=== PATIENT | female | born 1990 | race Caucasian/White ===

== ENCOUNTER 2020-12-20 16:08 | Outpatient (REF) | payer BC, SELFPAY ==
[2020-12-22 12:41] LABS: COVID-19 RT-PCR UVMMC Result Negative (Negative)
== END 2020-12-20 16:09 | disposition home or self-care (01) ==
LOC: LBN 16:08
PROVIDERS: Visit Provider Nurse Practitioner Family
DX: Z20.822 Contact with and (suspected) exposure to COVID-19 (principal); J06.9 Acute upper respiratory infection, unspecified
CPT/HCPCS: U0003

== ENCOUNTER 2022-04-04 03:21 | Outpatient (CLI) | payer BC, SELFPAY ==
[2022-04-04 15:36] LABS: Kit/Specimen SENT
[2022-04-04 15:43] LABS: Abs Immature Grans 0.03 10^3/uL (0.0-0.06); Absolute Basophil Count 0.05 10^3/uL (0.0-0.2); Absolute Eosinophil Count 0.34 10^3/uL (0.0-0.7); Absolute Lymphocyte Count 2.29 10^3/uL (1.2-3.4); Absolute Monocyte Count 0.73 10^3/uL (0.1-0.8); Basophils % 0.5; Eosinophils % 3.3; HGB 12.6 g/dL (11.2-15.7); Immature Grans % 0.3; Lymphocytes % 22.4; MCH 30.4 pg (27.0-33.0); MCV 87 fL (80-95); MPV 9.4 fL (8.0-11.0); Monocytes % 7.1; Neutrophils % 66.4; Platelet Count 293 10^3/uL (130-400); RBC 4.14 10^6/uL (3.93-5.22); RDW 11.8 % (11.7-14.6); RDW-SD 37.6 fL; WBC 10.24 10^3/uL (4.4-10.8)
[2022-04-04 16:18] LABS: TSH (W/Ref FT4) 2.64 uIU/mL (0.36-3.74)
[2022-04-05 08:25] LABS: Hepatitis B Surface Ag Negative (Negative)
[2022-04-05 09:24] LABS: Hepatitis C Ab w Rflx HCV PCR Negative (Negative)
[2022-04-05 09:27] LABS: Varicella IgG Antibody Positive (See Note)
[2022-04-05 09:38] LABS: Rubella IgG Ab (UVM) Positive (See Note)
[2022-04-05 09:45] LABS: HIV-1/2 Ag & Ab Screen Negative (Negative)
[2022-04-06 16:42] LABS: Syphilis IgG w/Reflex Nonreactive (Nonreactive)
[2022-04-07 01:48] LABS: Specimen WB Whole Blood
[2022-04-27 01:42] LABS: Result Summary NEGATIVE; Specimen WB Whole Blood
== END 2022-04-04 03:22 | disposition home or self-care (01) ==
LOC: LBO 03:21
PROVIDERS: PCP Family Medicine; Visit Provider Advanced Practice Midwife
DX: Z34.91 Encounter for supervision of normal pregnancy, unspecified, first trimester (principal); Z3A.11 11 weeks gestation of pregnancy; Z36.89 Encounter for other specified antenatal screening
CPT/HCPCS: 36415; 81220; 81222; 81329; 86787; 86803; 86850; 86900; 86901; 87340; 87389; 84443; 85025; 86762; 86780

== ENCOUNTER 2022-04-04 17:49 | Outpatient (REF) | payer BC, SELFPAY ==
[2022-04-04 19:00] LABS: *AMPHETAMINES SCREEN URINE Negative (Negative); *BARBITURATES SCREEN URINE Negative (Negative); *BENZODIAZEPINES SCREEN URINE Negative (Negative); Cannabinoids THC Negative (Negative); Cocaine Screen,Urine Negative (Negative); METHADONE URINE SCREEN Negative (Negative); OPIATES URINE SCREEN Negative (Negative)
[2022-04-04 19:01] LABS: Tricyclic Antidepressants Negative (Negative)
[2022-04-06 16:03] LABS: Chlamydia Result Negative (Negative); GC Result Negative (Negative)
[2022-04-10 16:03] LABS: Buprenorphine Negative ng/mL (Cutoff: 5.0); Norbuprenorphine Negative ng/mL (Cutoff: 2.5)
== END 2022-04-04 17:50 | disposition home or self-care (01) ==
LOC: LBN 17:49
PROVIDERS: PCP Family Medicine; Visit Provider Advanced Practice Midwife
DX: Z34.91 Encounter for supervision of normal pregnancy, unspecified, first trimester
CPT/HCPCS: 80307; 80348; 87491; 87591; 87086

== ENCOUNTER 2022-05-30 02:09 | Outpatient (CLI) | payer BC, SELFPAY ==
[2022-05-30 16:41] LABS: TSH (W/Ref FT4) 2.85 uIU/mL (0.36-3.74)
[2022-06-01 13:21] LABS: AFP 49.6 ng/mL; Calculated age at EDD 30 years; Cigarette smoking status non-Smoker; GA used in risk estimate Scan estimate; IVF Pregnancy No; Initial or repeat testing Initial testing; Insulin dependent diabetes No; Maternal Weight 193 lbs; Number of Fetuses 1; Physician Phone Number 802-748-7300; Prev Pregnancy w/NTD No; RECOMMENDED FOLLOW UP None.; Results Summary Normal risk
== END 2022-05-30 02:10 | disposition home or self-care (01) ==
LOC: LBO 02:09
PROVIDERS: PCP Family Medicine; Visit Provider Advanced Practice Midwife
DX: O26.892 Other specified pregnancy related conditions, second trimester (principal); R63.5 Abnormal weight gain; Z3A.19 19 weeks gestation of pregnancy
CPT/HCPCS: 36415; 82105; 84443

== ENCOUNTER 2022-08-01 02:44 | Outpatient (CLI) | payer BC, SELFPAY ==
[2022-08-01 16:19] LABS: HCT 35.2 % (36.0-46.0); HGB 11.6 g/dL (11.2-15.7); MCH 29.1 pg (27.0-33.0); MCV 88 fL (80-95); MPV 9.2 fL (8.0-11.0); Platelet Count 287 10^3/uL (130-400); RBC 3.98 10^6/uL (3.93-5.22); RDW 12.3 % (11.7-14.6); RDW-SD 40.2 fL; WBC 14.65 10^3/uL (4.4-10.8)
[2022-08-01 16:29] LABS: Glucose,1 Hr (Glucola) 116 mg/dL (80-140)
== END 2022-08-01 02:45 | disposition home or self-care (01) ==
LOC: LBO 02:44
PROVIDERS: Advanced Practice Midwife; PCP Family Medicine; Visit Provider Advanced Practice Midwife
DX: Z34.93 Encounter for supervision of normal pregnancy, unspecified, third trimester (principal); Z3A.28 28 weeks gestation of pregnancy
CPT/HCPCS: 36415; 82950; 85027

== ENCOUNTER 2022-08-24 00:38 | Outpatient (CLI) | payer BC, SELFPAY ==
--- NOTE | 2022-08-24 07:30 | DI.US_ITS ---
Exam(s) US OB CLAUDIO WEIGHT EXAM: US OB CLAUDIO WEIGHT CLINICAL HISTORY: covid in ,U07.1,O98.512. TECHNIQUE: Transabdominal obstetrical ultrasound performed. COMPARISON: US US OB 2-3 TRIMESTER from 05/30/2022 FINDINGS: Number of fetuses: 1 position: Cephalic Placental location: There is a grade 2 anterior placenta. No evidence of previa. BIOMETRIC DATA: BPD: 8.58cm, 34weeks 4days HC: 32.93cm, 37weeks 3days AC: 30.44cm, 34weeks 3days FL: 6.57cm, 33weeks 6days EFW: 2,463.43g, 5lb 7.55oz, 97% Composite Age: 35weeks 1day TORSTEN: 09/27/2022 Heart Rate: 112bpm Amniotic fluid index: 10.13cm. Visually, amount of fluid is within normal limits. IMPRESSION: 1. Single live intrauterine gestation as above. 2. Estimated weight is 2463gms. This is the 97th percentile. 3. Amniotic fluid index is 10.1 cm. Visually within normal limits. DATA REPOSITORY:
== END 2022-08-24 00:58 ==
LOC: DI 00:38
PROVIDERS: PCP Family Medicine; Visit Provider Advanced Practice Midwife
DX: O98.513 Other viral diseases complicating pregnancy, third trimester (principal); U07.1 COVID-19; Z3A.35 35 weeks gestation of pregnancy
CPT/HCPCS: 76816

== ENCOUNTER 2022-08-24 15:48 | Outpatient (CLI) | payer BC, SELFPAY ==
[2022-08-24 15:58] VITALS: BP 125/70; PULSE 64; TEMP 36.8
[2022-08-24 16:18] VITALS: BP 125/70; PULSE 64
--- NOTE | 2022-08-24 17:10 | W.OBNST ---
Date of service: 08/24/22 Time of Service: 17:10 NST Evaluation Reason for NST Reasons for Nonstress Test: OTHER, SEE COMMENT Gestational Age Gestational Age in Weeks and Days: 32 Weeks and 0Days Test and Monitor Explained Test/Monitor Explained: Test Explained and Monitor Explained Vital Signs Blood Pressure: 125/70 Pulse: 64 Temperature: 98.2 F Urine Results Urine Protein: Negative Urine Ketones: Positive Urine Glucose: Negative Urine Blood: Negative NST Information Date on Monitor: 08/24/22 Time on Monitor: 15:56 Date off Monitor: 08/24/22 Time off Monitor: 16:24 Total Time on Monitor: 28 NST Interventions: PO Hydration NST Evaluation Patient States Movement: Present FHR Baseline: 125 Variability: Moderate 6-25 bpm Accelerations: 15x15 Decelerations: None NST Results: Reactive Note N/A NST Note NST Reviewed and Verified by: Yolis Iglesias
[2022-08-24 17:12] VITALS: BP 125/70; PULSE 64; TEMP 36.8
[2022-08-25 13:18] VITALS: BP 118/70; PULSE 93
== END 2022-08-24 16:30 | disposition home or self-care (01) ==
LOC: BCD 15:48 → OBS 15:49
PROVIDERS: PCP Family Medicine; Visit Provider Advanced Practice Midwife
DX: O36.8330 Maternal care for abnormalities of the fetal heart rate or rhythm, third trimester, not applicable or unspecified (principal); Z3A.32 32 weeks gestation of pregnancy
CPT/HCPCS: 59025

== ENCOUNTER 2022-09-24 16:11 | Outpatient (REF) | payer BC, SELFPAY | END 2022-09-24 16:12 | disposition home or self-care (01) | LOC: LBN 16:11 | PROVIDERS: PCP Family Medicine; Visit Provider Advanced Practice Midwife | DX: Z34.93 Encounter for supervision of normal pregnancy, unspecified, third trimester (principal); Z36.85 Encounter for antenatal screening for Streptococcus B; Z3A.36 36 weeks gestation of pregnancy | CPT/HCPCS: 87077; 87186; 87081 ==

== ENCOUNTER 2022-10-19 18:45 | Inpatient (IN) | payer BC, SELFPAY ==
[2022-10-19] VITALS (9 sets, daily range): BP systolic 138–176; BP diastolic 72–90; PULSE 61–72; RESP 16–20; TEMP 36.8–36.9; O2SAT 98
--- NOTE | 2022-10-19 18:00 | W.OBNST ---
Date of service: 10/19/22 Time of Service: 18:00 NST Evaluation Reason for NST Reasons for Nonstress Test: OTHER, SEE COMMENT Reason for NST Other: Rule out labor Gestational Age Gestational Age in Weeks and Days: 40 Weeks and 0Days Test and Monitor Explained Test/Monitor Explained: Test Explained, Monitor Explained and Patient Verbalized Understanding Vital Signs Blood Pressure: 140/72 Pulse: 61 Temperature: 98.4 F NST Information Date on Monitor: 10/19/22 Time on Monitor: 16:30 Date off Monitor: 10/19/22 Time off Monitor: 17:30 Total Time on Monitor: 60 NST Interventions: PO Hydration Contraction Frequency: irregular q 2-6 minutes NST Evaluation Patient States Movement: Present FHR Baseline: 125 Variability: Moderate 6-25 bpm Accelerations: 15x15 Decelerations: None NST Results: Reactive Note Ultrasound Done: N/A. NST Note Note: Elevated BP noted, pt denies PAULINO, scotomata or URQ pain, Labs ordered, MD notified of r/o gHTN vs pre-e status Will recheck cvx in 2-3 hrs, await lab results, BP recheck NST Reviewed and Verified by: Yolis Iglesias
[2022-10-19 18:07] LABS: HCT 39.8 % (36.0-46.0); HGB 13.1 g/dL (11.2-15.7); MCH 28.4 pg (27.0-33.0); MCHC 32.9 % (32.0-36.0); MCV 86 fL (80-95); MPV 10.1 fL (8.0-11.0); Platelet Count 281 10^3/uL (130-400); RBC 4.62 10^6/uL (3.93-5.22); RDW 13.2 % (11.7-14.6); RDW-SD 41.3 fL
[2022-10-19 18:16] LABS: ALT 16 U/L (14-59); AST 20 U/L (15-37); Albumin 3.1 g/dL (3.4-5.0); Alkaline Phosphatase 156 U/L (46-116); Anion Gap 9.5 mmol/L (3-11); BUN 10 mg/dL (7-18); Bilirubin, Total 0.3 mg/dL (0.2-1.0); CO2 25.5 mmol/L (21.0-32.0); CREATININE 0.6 mg/dL (0.55-1.02); Calcium 9.8 mg/dL (8.5-10.1); Chloride 100 mmol/L (98-107); Estimated GFR 123.76 (mL/min/1.73m2); Glucose 85 mg/dL (74-106); LDH 139 U/L (81-234); Potassium 3.9 mmol/L (3.5-5.1); Sodium 135 mmol/L (136-145); Total Protein 7.6 g/dL (6.4-8.2)
--- NOTE | 2022-10-19 18:48 | HPE_ITS ---
Date of service: 10/19/22 Time of Service: 18:48 Assessment and Plan Assessment and plan (1) Uterine contractions: Status: Acute Assessment and plan: A: 31 yo G1 @ 40 wks, spontaneous onset labor Category 1 tracing Elevated BP initially upon arrival, stabilized at this time Serum pre-eclampsia labs are neg with urine prot/creat ratio 0.35 GBS positive, PCN allergic, Low risk for SD, moderate risk for PPH P: Admit to IV access for Clindamycin prophylaxis protocol Expectant management Anticipate , Dr. Melo available for consult OB-HPI Labor/Delivery History of Present Illness Reason for Visit: NST Chief Complaint: Uterine Contractions. TORSTEN Calculator Estimated Delivery Date Method Current WG Current Estimate 10/19/22 Ultrasound #1 40w 0d Other Estimates 10/08/22 LMP (Uncertain) 41w 4d Comments: Contractions more regular today since 1000, mostly labor pain is in her back, no ROM, no bleeding. History of Present Expected Delivery Route/Plan - CNM FOB/ - Faisal Garrido (his first child) GBS positive /Clindamycin susceptible / interested in taking placenta home, considering encapsualtation Specific Issues/Plan 1. Family hx CF Carriers: brother & maternal cousin, pt is SMA/CF neg (routine testing only). 1a. [place] is waiting to hear from her family about mutations as of 05/01/22 1b. cfDNA screen low risk x5, gender not requested. AFP neg for NTD. 2. TSH drawn d/t large weight gain in past year=2.64. Repeat TSH at 19 wks=nml @ 2.85 3. COVID + on 06/11/22 Paxlovid RX sent. K[facility]- Did not take paxlovid.- vaccinated 3a. 32 wk growth 08/24: EFW in 97th percentile, CLAUDIO 10.1, anterior placenta, cephalic presentation 4. Tdap done Assessment: History Reviewed & Current Review of Systems Narrative: ROS completed, non contributory other then HPI PFSH All Active Problems (Updated 10/19/22 @ 18:56 by Yolis Iglesias) Uterine contractions (Acute) Elevated BP without diagnosis of hypertension (Acute) Weight gain, abnormal (Acute) weight 159 11/28 at [facility] H/O wrist surgery (Acute) (Acute) Medical History (Updated 10/19/22 @ 18:56 by Yolis Iglesias) COVID-19 affecting in second trimester + 06/11/22 Family history of cystic fibrosis Left wrist fracture Tachycardia URI (upper respiratory infection) Family History Mother Cancer ANAL CANCER Maternal Grandmother No problems noted. Maternal Grandfather No problems noted. Father Alcohol use disorder Paternal Grandmother No problems noted. Paternal Grandfather Alcohol use disorder Brother Cystic fibrosis carrier Brother No problems noted. Sister No problems noted. Maternal Aunt Diabetes Maternal Aunt Diabetes Maternal Cousin Cystic fibrosis Social History Smoking/Tobacco Use Status: Never Smoking risk assessment performed?: Yes Drug use: Never Household members: significant other Sexually active: Yes Do you think of yourself as: straight/heterosexual Current gender identity: female Female Reproductive History Menstrual control method: none History History 1 Para 0 Hx # Term Pregnancies Multiple births Hx # Pregnancies Ectopic pregnancies AB induced Hx Number of Living Children AB spontaneous Meds Allergies and Home Medications Allergies Allergy/AdvReac Type Severity Reaction Status Date / Time amoxicillin Allergy Hives Verified 10/19/22 16:10 Home Medications Medication Instructions Recorded Confirmed Type Saccharomyces boulardii 250 mg 5,000 mmu cells PO DAILY 03/07/22 10/19/22 History capsule (Daily Probiotic (S. boulardii)) cholecalciferol (vitamin D3) 25 25 mcg PO DAILY 03/07/22 10/19/22 History mcg (1,000 unit) capsule prenat.vits,re,oyy-yvgc-ftuss 1 tab PO DAILY 03/07/22 10/19/22 History albuterol sulfate 90 mcg/actuation 2 puff inhalation QID #8.5 grams 07/25/22 10/19/22 Rx aerosol inhaler (Proventil HFA) ascorbate calcium (vitamin C) 500 500 mg PO DAILY 08/06/22 10/19/22 History mg tablet Exam Physical Exam Vital signs: Pulse BP 61 176/87 H 10/19/22 17:23 10/19/22 17:23 Vital Signs Reviewed: Yes Narrative: BP retaken manually is 138/88, pt denies PAULINO, scotomata or RUQ pain HTN labs were drawn on admission and results are WNL with urine prot/creat ratio pending Constitutional Constitutional: mild distress, average body habitus and cooperative Detailed Labor and Delivery Exam Dilation: 5.5 Effacement (%): 90 station: -2 Cervix position: anterior Consistency: soft FELIX Score(Cervical Ripeness Score): 11 Amniotic Membrane Status: Intact Contraction Frequency(min): irregular q2-5 Contraction Intensity: Moderate Fetus A Heart Rate Baseline: 125 Monitor Accelerations: 15 X 15 Monitor Decelerations: None Variability: Moderate (6-25 BPM) Categories: Category I Est. Weight: 8 lb 6.041 oz Est. Weight: 3800 gms HEENT Exam HEENT Exam: Normal Neck Exam Neck Exam: Normal Chest/Brest/Axilla Exam Chest Exam: Normal Breast Exam Breast Exam: Not Done Respiratory Exam Respiratory Exam: Normal Cardiovascular Exam Cardiovascular Exam: Normal Abdominal Exam Abdominal Exam: Normal (Gravid) Rectal Exam Rectal Exam: Not Done Exam Exam: Normal Extremities Exam Extremities Exam: Normal Back/Spine/Pelvis Exam Back Exam: Normal Pelvis Adequate: Yes Skin Exam Skin Exam: Normal Neurological Exam Neurological Exam: Normal Results Results Group Beta Strep: Positive Blood Type: O+ Rubella Status: Immune Varicella Immunity: Immune Abnormal Lab Findings: Abnormal Labs 10/19/22 10/19/22 17:47 17:47 WBC 17.30 H Sodium 135 L Alkaline Phosphatase 156 H Albumin 3.1 L Risk Assessment Risk for Shoulder Dystocia Historical/Initial OB: NEGATIVE FOR: Pelvic Abnormality, Pre- BMI>30, Previous Shoulder Dystocia or Previous Macrosomia 40 Weeks: NEGATIVE FOR: EFW> 4500 gms, Maternal Weight Gain >40lb or Post Dates Increased Risk?: No Delivery Plan @ 36wks: NVD planned. KH Delivery Plan @ 40 wks: NVD KH Risk for Pre-Eclampsia Yes, if one or more: NEGATIVE FOR: Hx Pre-E/Gest HTN, Chronic HTN, Multiple Gestation, Pre-gestational DM, Renal Disease, Systemic Lupus or APA Syndrome Yes, if 2 or more: POSITIVE FOR: Nulliparity; NEGATIVE FOR: Age>= 35 yrs, >10yr btwn pregnancies, BMI>30, ethinicty, Mother/Sister w/ Pre-E or Previous IUGR Risk for Post- Hemorrhage Initial: NEGATIVE FOR: Multiple Gestation, Previous PPH, Known Clotting Deficiency, Grand Multiparity or Anticoagulation At Risk?: No Risks Reviewed Risks Reviewed Upon Admission: Yes
[2022-10-19 18:50] LABS: COMMENT (LAB VIEW ONLY) 49.84 mg/dL; PROTEIN 17.9 mg/dL; Prot/Crea Ur Ratio 0.35
[2022-10-19] MEDS: Normal Saline Flush 10 ML SYR (19:47)
[2022-10-19] MEDS: CLINDAMYCIN 900 MG/50 ML BAG 50 MG IVPB (20:10)
--- NOTE | 2022-10-19 22:18 | PGE_ITS ---
Date of service: 10/19/22 Time of Service: 22:19 Pelvic Exam Dilation: 6.5 Effacement (%): 90 station: -2 Consistency: soft Contractions Monitor Mode: External Contraction Frequency(min): q3-4 Intensity: Moderate/Strong Fetus A Monitor: External (US) Heart Rate Baseline: 125 Variability: Moderate (6-25 BPM) Categories: Category I Accelerations: 15 X 15 Decelerations: None Amniotic Membrane Status: Intact Assessment and Plan Assessment and plan (1) Pre-eclampsia affecting childbirth: Status: Acute Assessment and plan: A: Criteria met for pre-eclampsia, intermittent mild range BP without severe features Spontaneous labor with progress to active phase Category 1 tracing, back labor GBS+, clindamycin prophylaxis P: Maintain IV access Encourage position changes, comfort measures as pt desires Begin continuous EFM if BP remains elevated Pt's questions about diagnosis answered Objective Abnormal lab results 10/19/22 10/19/22 Range/Units 17:47 17:47 WBC 17.30 H (4.4-10.8) 10^3/uL Sodium 135 L (136-145) mmol/L Alkaline Phosphatase 156 H (46-116) U/L Albumin 3.1 L (3.4-5.0) g/dL Temp Pulse Resp BP Pulse Ox 98.2 F 68 20 158/90 H 98 10/19/22 20:23 10/19/22 21:15 10/19/22 21:15 10/19/22 21:15 10/19/22 20:23 Laboratory Results WBC 17.30 10^3/uL (4.4-10.8) H 10/19/22 17:47 RBC 4.62 10^6/uL (3.93-5.22) 10/19/22 17:47 Hgb 13.1 g/dL (11.2-15.7) 10/19/22 17:47 Hct 39.8 % (36.0-46.0) 10/19/22 17:47 MCV 86 fL (80-95) 10/19/22 17:47 MCH 28.4 pg (27.0-33.0) 10/19/22 17:47 MCHC 32.9 % (32.0-36.0) 10/19/22 17:47 RDW 13.2 % (11.7-14.6) 10/19/22 17:47 Plt Count 281 10^3/uL (130-400) 10/19/22 17:47 MPV 10.1 fL (8.0-11.0) 10/19/22 17:47 Sodium 135 mmol/L (136-145) L 10/19/22 17:47 Potassium 3.9 mmol/L (3.5-5.1) 10/19/22 17:47 Chloride 100 mmol/L (98-107) 10/19/22 17:47 Carbon Dioxide 25.5 mmol/L (21.0-32.0) 10/19/22 17:47 Anion Gap 9.5 mmol/L (3-11) 10/19/22 17:47 BUN 10 mg/dL (7-18) 10/19/22 17:47 Creatinine 0.6 mg/dL (0.55-1.02) 10/19/22 17:47 Est GFR (CKD-EPI 2020) 123.76 (mL/min/1.73m2) 10/19/22 17:47 Glucose 85 mg/dL (74-106) 10/19/22 17:47 Calcium 9.8 mg/dL (8.5-10.1) 10/19/22 17:47 Total Bilirubin 0.3 mg/dL (0.2-1.0) 10/19/22 17:47 AST 20 U/L (15-37) 10/19/22 17:47 ALT 16 U/L (14-59) 10/19/22 17:47 Alkaline Phosphatase 156 U/L (46-116) H 10/19/22 17:47 Lactate Dehydrogenase 139 U/L (81-234) 10/19/22 17:47 Total Protein 7.6 g/dL (6.4-8.2) 10/19/22 17:47 Albumin 3.1 g/dL (3.4-5.0) L 10/19/22 17:47 Ur Random Creatinine 49.84 mg/dL 10/19/22 18:25 U Random Total Protein 17.9 mg/dL 10/19/22 18:25 U [place] Prot/Creat Ratio 0.35 10/19/22 18:25 Patient ABO/Rh O Positive 10/19/22 17:47 Antibody Screen NEGATIVE 10/19/22 17:47 Vital Signs Reviewed: Yes Objective Narrative Objective Narrative: BP elevation has continued in mild range, pt denies symptoms With prot/creat ratio 0.35 meeting criteria for pre-eclampsia without severe features Diagnosis explained to pt, FOB and her mother who are providing bedside support Initial clindamycin dose infused and IVF running at KVO Pt coping well with labor, progress to 6-7 cm noted Category 1 tracing per EFM after period of intermittent auscultation Subjective Interval history since last seen: Contractions have increased in strength and frequency, pt has ambulated and then rested in bed, now requests to soak in the tub, declines nitrous at this time. Results Hemoglobin/Hematocrit: Hgb 13.1 g/dL (11.2-15.7) 10/19/22 17:47 Hct 39.8 % (36.0-46.0) 10/19/22 17:47 Abnormal Lab Findings: Abnormal Labs 10/19/22 10/19/22 17:47 17:47 WBC 17.30 H Sodium 135 L Alkaline Phosphatase 156 H Albumin 3.1 L
[2022-10-20] VITALS (42 sets, daily range): BP systolic 122–164; BP diastolic 57–93; PULSE 54–104; RESP 16–18; TEMP 36.7–37; O2SAT 79–100; BMI 29.5
--- NOTE | 2022-10-20 02:19 | W.PM.OBNL1 ---
Date of service: 10/20/22 Time of Service: 02:19 Informed Consent Informed Consent: Other (pt declines AROM) Pelvic Exam Dilation: 8.9 Effacement (%): 100 station: -1 Position: LOP Contractions Monitor Mode: Palpation Contraction Frequency(min): 2-3 Intensity: Strong Fetus A Monitor: Doppler Heart Rate Baseline: 130 FHR Rhythm: Regular Characteristics: Normal Accelerations: Present Amniotic Membrane Status: Intact (tense small forebag palpable) Assessment and Plan Assessment and plan (1) Pre-eclampsia affecting childbirth: Status: Acute Assessment and plan: A: Primip w/spont labor progressed to transition BP remains intermittently mild range Declines AROM, will try nitrous IV maintained @ KVO P: Comfort measures as pt desires Anticipate Objective Vital Signs Reviewed: Yes Objective Narrative Objective Narrative: BP remains intermittently mild range Pt laboring effectively with support from FOB and mother Has been H&K and various positions on floor mat Would like to try nitrous inhalant Subjective Interval history since last seen: Back pain with every contraction, wants to try nitrous, music and diffuser in place.
[2022-10-20] MEDS: CLINDAMYCIN 900 MG/50 ML BAG 50 MG IVPB (03:57)
--- NOTE | 2022-10-20 05:12 | PGE_ITS ---
Date of service: 10/20/22 Time of Service: 05:12 Informed Consent Informed Consent: Other Pelvic Exam Dilation: 10 station: +1 Position: LOP Contractions Monitor Mode: External Contraction Frequency(min): 2-3 minutes Intensity: Strong Fetus A Monitor: External (US) Heart Rate Baseline: 110 Variability: Minimal (1-5 BPM) Categories: Category II Accelerations: 10 X 10 Decelerations: Prolonged (8 minute decel with onset of pushing) Amniotic Membrane Status: Ruptured Rupture Method: Spontaneous Amniotic Fluid: Meconium Amount: small Date of Membrane Rupture: 10/20/22 Time of Membrane Rupture: 04:00 Assessment and Plan Assessment and plan (1) Pre-eclampsia affecting childbirth: Status: Acute Assessment and plan: A: 2nd stage with persistent OP head position Category 2 tracing due to prolonged decel now resolved BP stable 130's over 80's P: Team consultation w/OB & ASSOCIATE PROFESSOR OF COUNSELING Plan of care for pain management Anticipate vaginal delivery Objective Vital Signs Reviewed: Yes Notable Details: BP 130's over 80's Objective Narrative Objective Narrative: Pt very upset with her contractions, nitrous not helping much Feels increased pressure and mild urge to bear down Wants an epidural so she can rest Pt in [place] and did coached pushing with criminal psychologist, head LOP +2 FHT to 70's, with position changes/fluid bolus resolved after 8 minutes Currently pt in K&H position on bed, FSE in place, ASSOCIATE PROFESSOR OF COUNSELING and OB en route due to pt desire for anesthesia and category 2 tracing Subjective Interval history since last seen: Back labor continues, has decided she wants an epidural now. Pt reports her water broke an hour ago while sitting on the ball.
--- NOTE | 2022-10-20 06:00 | W.ANESPROC ---
Intrathecal Analgesia Date Performed: 10/20/22 Procedure Time: 05:54 Requesting Provider: Yolis Iglesias Procedure Location: Obstetrics Reason Performed: Labor Intrathecal Analgesia Standard Monitors Applied: Blood Pressure, SpO2 and See EMR for corresponding vital signs Patient Position: Sitting Timeout Performed: Yes Sedation Given (Indicate Dose Given): No Sedation given Patient Mental Status: Awake Sterility: Hand Hygiene, Surgical Cap, Surgical Mask, Sterile Gloves and Chlorhexidine Placement Site: L3-L4 Interspace Spinal Needle Type: Omar 25 Gauge Needle Length: 3.5 Inch Spinal Procedure: Site Prepped, 1% Lidocaine to skin and subcutaneous tissue with 25G needle, Spinal Needle Placed, Negative Heme, Positive CSF Flow and Medication Injected Paresthesia: None Spinal Local Anesthetic (Indicate Dose Given): Bupivacaine 0.25% PF (ml) Dose:: 1 ml Additives (Indicate Dose Given): Fentanyl PF Dose:: 20 mcg and Duramorph PF Dose:: 150 mcg Ultrasound: Not Used Number of Attempts (See previous attempts in note section): 1 Procedure Tolerated: No Complications and Patient tolerated well Procedure Outcome: Successful Procedure Comment: P t 10 cm, very uncomfortable. procedure uncomplicated, pt. much more comfortable after procedure and able to sleep. Performed By: Nate Pretty
--- NOTE | 2022-10-20 06:03 | ANES.PREOP_ITS ---
General Info Date of Service Date Performed: 10/20/22 Height: 6 ft Weight: 98.883 kg Body Mass Index (BMI): 29.5 Meds Allergies and Home Medications Allergies Allergy/AdvReac Type Severity Reaction Status Date / Time amoxicillin Allergy Hives Verified 10/19/22 16:10 Home Medication Medication Instructions Recorded Saccharomyces boulardii 250 mg 5,000 mmu cells PO DAILY 03/07/22 capsule (Daily Probiotic (S. boulardii)) cholecalciferol (vitamin D3) 25 25 mcg PO DAILY 03/07/22 mcg (1,000 unit) capsule prenat.vits,re,ohh-iqyg-ocmey 1 tab PO DAILY 03/07/22 albuterol sulfate 90 mcg/actuation 2 puff inhalation QID #8.5 grams 07/25/22 aerosol inhaler (Proventil HFA) ascorbate calcium (vitamin C) 500 500 mg PO DAILY 08/06/22 mg tablet Current Visit Medications: Current Medications Generic Name Dose Route Start Last Admin Trade Name Freq PRN Reason Stop Dose Admin Sodium Chloride 500 mls @ 0 mls/hr 10/19/22 18:45 Saline 500ml Bag IV PRN PRN As Directed Clindamycin Phosphate/Dextrose 900 mg in 50 mls @ 50 mls/hr 10/19/22 20:00 10/20/22 03:57 Cleocin In D5w IVPB 50 mls/hr Q8H LOUIE Administration IV Miscellaneous Supplies 1 each 10/19/22 18:45 Iv Access IV DIRECTED LOUIE Sodium Chloride 0 ml 10/19/22 18:45 Normal Saline Flush 10 Ml Syr IVP PRN PRN PFSH Active Problems Active Problems: Problem Status Onset Code Pre-eclampsia affecting childbirth O14.94 Uterine contractions O47.9 Elevated BP without diagnosis of hypertension R03.0 Weight gain, abnormal R63.5 H/O wrist surgery Z98.890 Z34.90 Medical History Medical History (Updated 10/19/22 @ 22:26 by Yolis Iglesias) COVID-19 affecting in second trimester + 06/11/22 Family history of cystic fibrosis Left wrist fracture Tachycardia URI (upper respiratory infection) Tobacco Smoking/Tobacco Use Status: Never Alcohol Alcohol Intake: former Substance Use Substance use: Never Substance use type: does not use Prental History History 1 Para 0 Hx # Term Pregnancies Multiple births Hx # Pregnancies Ectopic pregnancies AB induced Hx Number of Living Children AB spontaneous Vital Signs and Lab Results Vital Signs Most Recent Vital Signs in EMR: Most Recent Vital Signs Temp Pulse Resp BP Pulse Ox 36.8 C 63 18 142/68 H 99 10/20/22 01:20 10/20/22 06:00 10/20/22 01:20 10/20/22 05:57 10/20/22 06:00 Lab Results 10/19/22 17:47 10/19/22 17:47 Blood Type / Crossmatch: Patient ABO/Rh O Positive 10/19/22 Antibody Screen NEGATIVE 10/19/22 Complete Blood Count: White Blood Count 17.30 10^3/uL (4.4-10.8) H 10/19/22 17:47 Red Blood Count 4.62 10^6/uL (3.93-5.22) 10/19/22 17:47 Hemoglobin 13.1 g/dL (11.2-15.7) 10/19/22 17:47 Hematocrit 39.8 % (36.0-46.0) 10/19/22 17:47 Platelet Count 281 10^3/uL (130-400) 10/19/22 17:47 Complete Metabolic Panel: Sodium 135 mmol/L (136-145) L 10/19/22 17:47 Potassium 3.9 mmol/L (3.5-5.1) 10/19/22 17:47 Chloride 100 mmol/L (98-107) 10/19/22 17:47 Carbon Dioxide 25.5 mmol/L (21.0-32.0) 10/19/22 17:47 BUN 10 mg/dL (7-18) 10/19/22 17:47 Creatinine 0.6 mg/dL (0.55-1.02) 10/19/22 17:47 Est GFR (CKD-EPI 2020) 123.76 (mL/min/1.73m2) 10/19/22 17:47 Calcium 9.8 mg/dL (8.5-10.1) 10/19/22 17:47 Albumin 3.1 g/dL (3.4-5.0) L 10/19/22 17:47 Glucose 85 mg/dL (74-106) 10/19/22 17:47 Liver Function Panel: Alanine Aminotransferase (ALT/SGPT) 16 U/L (14-59) 10/19/22 17: 47 Aspartate Amino Transf (AST/SGOT) 20 U/L (15-37) 10/19/22 17:47 Coagulation Panel: No Data to Display Cardiac Panel: No Data to Display Arterial Blood Gas: No Data to Display Venous Blood Gas: No Data to Display Pancreas Panel: No Data to Display Thyroid Panel: No Data to Display Infectious Disease: No Data to Display Blood Cultures: No Data to Display Toxicology Panel: No Data to Display Panel: No Data to Display Anesthesia Assessment and Plan Anesthesia History Personal History: No History of General Anesthesia Family History: No Family History of Anesthesia Complications Exercise Tolerance Exercise Tolerance: Metabolic Equivalents>4 Pertinent Negatives Pertinent Negatives: No Symptoms of GERD, No Major Cardiovascular Symptoms or Complaints and No Major Pulmonary Symptoms or Complaints Cardiac & Pulmonary Exam Cardiac Exam: Normal S1/S2 Heart Sounds Pulmonary Exam: Clear Bilateral Breath Sounds Implantable Cardiac Device Does patient have a Pacemaker or an ICD?: No Airway Exam Known Difficult Airway: No Mallampati Class: 2 Mouth Opening: Normal (> 3cm) Thyromental Distance: Greater than 3 cm Neck Range of Motion: Full ROM Neck Circumference: Normal Teeth Condition: Normal Dentition ASA Classification ASA Score: ASA 2 Emergency Case?: No NPO Status NPO Status: Full Stomach Status Status: Confirmed Anesthesia Plan Resuscitation Status: Full Code Anesthesia Technique: Spinal Anesthesia Airway Planned: Natural Airway Pain Management: Intrathecal Analgesia Monitors Used: Standard Monitors
--- NOTE | 2022-10-20 07:09 | OBCE_ITS ---
Date of service: 10/20/22 Time of Service: 07:10 Assessment and Plan Assessment and plan (1) heart rate decelerations affecting management of mother: Status: Acute Assessment and plan: Pt pushing effectively with contractions. I recommend continuing with current plan to anticipate , [facility] aware of category2 FHR tracing. Anesthesia provider remains on campus. History of Present Illness History of Present Illness Chief Complaint: deceleration of FHR. Consults Consult date: 10/20/22 Requesting physician: Yolis Iglesias [facility] All Active Problems (Updated 10/20/22 @ 07:35 by Suzette Melo MD) heart rate decelerations affecting management of mother (Acute) Pre-eclampsia affecting childbirth (Acute) Uterine contractions (Acute) Elevated BP without diagnosis of hypertension (Acute) Weight gain, abnormal (Acute) weight 159 11/28 at [facility] H/O wrist surgery (Acute) (Acute) Medical History (Updated 10/20/22 @ 07:35 by Suzette Melo MD) COVID-19 affecting in second trimester + 06/11/22 Family history of cystic fibrosis Left wrist fracture Tachycardia URI (upper respiratory infection) Family History Mother Cancer ANAL CANCER Maternal Grandmother No problems noted. Maternal Grandfather No problems noted. Father Alcohol use disorder Paternal Grandmother No problems noted. Paternal Grandfather Alcohol use disorder Brother Cystic fibrosis carrier Brother No problems noted. Sister No problems noted. Maternal Aunt Diabetes Maternal Aunt Diabetes Maternal Cousin Cystic fibrosis Social History Smoking/Tobacco Use Status: Never Smoking risk assessment performed?: Yes Alcohol Intake: former Drug use: Never Substance use type: does not use Household members: significant other Sexually active: Yes Do you think of yourself as: straight/heterosexual Current gender identity: female Do you feel safe at home: Yes Do you feel safe in your relationship?: Yes Female Reproductive History Menstrual control method: none History History 1 Para 0 Hx # Term Pregnancies Multiple births Hx # Pregnancies Ectopic pregnancies AB induced Hx Number of Living Children AB spontaneous Exam Narrative Exam Narrative: I was called by Lalo Iglesias CNM to evaluate pt after a prolonged deceleration of the FHR when pt was noted to be completely dilated approximately 05:08 this am. Upon arrival pt was in hands and knees position and FHR had returned to baseline of 120s with variable decelerations. 05:50 Labor intrathecal administered by Lalo Pretty CRNA with excellent pain relief 06:17 Late declerations of FHR assoc with q2min contractions. IV fluid bolus started. Pt positioned further in R lateral postion. 06:44 Variable decel of FHR. Decision made to place pt in supine position and begin maternal expulsive efforts. Pt pushing effectively. FHR category 2. I recommended proceeding to vaginal delivery. Results Last Vital Signs Temp 98.2 F 10/20/22 01:20 Pulse 60 10/20/22 07:05 Resp 18 10/20/22 01:20 BP 133/63 10/20/22 06:44 Pulse Ox 82 L 10/20/22 07:05 Labs 10/19/22 17:47 10/19/22 17:47 Labs: Laboratory Results - last 24 hr 10/19/22 10/19/22 10/19/22 17:47 17:47 17:47 WBC 17.30 H RBC 4.62 Hgb 13.1 Hct 39.8 MCV 86 MCH 28.4 MCHC 32.9 RDW 13.2 Plt Count 281 MPV 10.1 Sodium 135 L Potassium 3.9 Chloride 100 Carbon Dioxide 25.5 Anion Gap 9.5 BUN 10 Creatinine 0.6 Est GFR (CKD-EPI 2020) 123.76 Glucose 85 Calcium 9.8 Total Bilirubin 0.3 AST 20 ALT 16 Alkaline Phosphatase 156 H Lactate Dehydrogenase 139 Total Protein 7.6 Albumin 3.1 L Ur Random Creatinine U Random Total Protein U [place] Prot/Creat Ratio Patient ABO/Rh O Positive Antibody Screen NEGATIVE 10/19/22 18:25 WBC RBC Hgb Hct MCV MCH MCHC RDW Plt Count MPV Sodium Potassium Chloride Carbon Dioxide Anion Gap BUN Creatinine Est GFR (CKD-EPI 2020) Glucose Calcium Total Bilirubin AST ALT Alkaline Phosphatase Lactate Dehydrogenase Total Protein Albumin Ur Random Creatinine 49.84 U Random Total Protein 17.9 U [place] Prot/Creat Ratio 0.35 Patient ABO/Rh Antibody Screen
[2022-10-20] MEDS: Lidocaine 1% Multi-Dose 20 ML VIAL IJ (08:00)
--- NOTE | 2022-10-20 08:47 | W.OBDELIVERY ---
Date of service: 10/20/22 Time of Service: 08:48 OB Labor/ Delivery Information Labor/Delivery Information Group Beta Strep: Positive Rubella Status: Immune Blood Type: O+ Varicella Immunity: Immune Stages of Labor Onset of Labor Date: 10/19/22 Onset of Labor Time: 11:00 ROM Baby A: 10/20/22 ROM Baby A: 04:00
--- NOTE | 2022-10-20 09:13 | W.OBDELIVERY ---
Date of service: 10/20/22 Time of Service: 09:13 OB Labor/ Delivery Information Baby A Delivery Delivery Method: Spontaneaous Presentation: Cephalic Cephalic Position: Vertex Vertex Position: Right Occipital Anterior Breech Position: N/A Cord Description-Baby A: 3 Vessels Amniotic Fluid: Meconium Estimated Blood Loss: 200 ml Delivery Outcome: Liveborn Complications: Initially placed in warmer for Peds to evaluate, PPV given briefly and 5 minute was 9 Transferred: Remains with Mother Note: Pt requested regional anesthesia in 2nd stage and received intrathecal by 0600 after team consultation with MOTHERCRAFT NURSE and OB completed for plan of care. Pt had excellent pain relief and rested well for 45 minutes. Coached pushing began at that time as tracing was category 2 with recurrent late decels, variability remained moderate, head was +2 station and had rotated to an OA position. Dr. Melo inhouse and reviewing tracing periodically. 2nd stage huddle was held, and repeated at the 1 hour hammad. Increased risk for SD and PPH discussed, preparations were put in place. Due to continued decelerations and meconium fluid, Peds was called to attend delivery, when head was Dr. Melo was summoned to delivery room as well. Excellent maternal efforts resulted in of male over intact perineum after injection of local anesthesia in consideration for MLE due to category 2 tracing, however head then shoulders delivered easily and FOB assisted with delivery of the body. Infant was limp and pale with terminal meconium noted. Cord was clamped and cut by CNM, infant passed to Peds at warmer for evaluation. Cord gas was collected by , pitocin bolus begun, cord blood collected then Danny placenta delivered intact with 3 VC, minimal bleeding. Placenta placed in container for pt to bring home as she desires. Vulva and vagina inspected and are without laceration, no repair indicated, infant to mother's arms now crying robustly at 14 minutes of age, pt plans to breastfeed. Apgars 4/9, weight 3315 gms, strong family bonding observed. Providers Doctor: Suzette Melo Nurse Social Services Counselor: Yolis Iglesias Teacher Vocational Training: Nate Pretty Geomorphology Teacher: Ruben Vyas Nurse: Jamila Rivera Nurse: Ankita Epstein Other: Tammy HAYNES and Tammi GONGORA Labor/Delivery Information Number of Babies in Womb: 1 Steroids Given: None Group Beta Strep: Positive Number of Doses of Antibiotics: 2 Rubella Status: Immune Blood Type: O+ Varicella Immunity: Immune Shoulder Dystocia: No Stages of Labor Onset of Labor Date: 10/19/22 Onset of Labor Time: 11:00 Complete Dilatation Date: 10/20/22 Complete Dilatation Time: 05:00 Labor - Stage 1 Duration: 18 hours and 0 minutes ROM Baby A: 10/20/22 ROM Baby A: 04:00 ROM Total Time- Baby A: [id number] Infant Delivery Date-Baby A: 10/20/22 Delivery Time-Baby A: 08:11 Labor Stage 2 Duration: 3 hours and 11 minutes Placenta Delivery Date-Baby A: 10/20/22 Placenta Delivery Time-Baby A: 08:18 Labor-Stage 3 Duration: 7 minutes Total Length of Labor-Baby A: 21 hours and 11 minutes Placenta Cultured: No Placenta Status: Delivered Baby A Gender: Male Gestational Status: Term (39-41.6 wks) Gestational Age in Weeks/Days: 40 Weeks and 1 Days weight: 7 lb 4.933 oz Weight Comment: 3315 gms Score-1 Minute Interval(Baby A) Heart Rate-1 minute: Below 100 BPM Respiratory Effort- 1 minute: Slow Respiration/Weak Cry Muscle Tone-1 minute: Minimal Flexion/Extension Reflex Response-1 minute: Minimal Response Color-1 minute: Pallor or Cyanosis Total Score-1 minute: 4 Score-5 Minute Interval(Baby A) Heart Rate- 5 minute: 100 BPM or Greater Respiratory Effort-5 minute: Spontaneous/Strong Cry Muscle Tone-5 minute: Active Movement Reflex Response-5 minute: Prompt Response Color-5 minute: Bluish Hands or Feet Total Score- 5 minute: 9
[2022-10-20] MEDS: Ibuprofen 600 MG TAB PO (12:45)
[2022-10-20] MEDS: Acetaminophen 325 MG TAB 650 MG PO (12:45)
[2022-10-20] MEDS: Oxytocin/Normal Saline 30 UNIT/500 ML BAG 95 UNITS IV (18:07)
[2022-10-21 01:17] VITALS: BP 120/64; PULSE 78; RESP 15; TEMP 36.8; O2SAT 98
[2022-10-21] MEDS: Acetaminophen 325 MG TAB 650 MG PO ×2 (05:56→20:13)
[2022-10-21] MEDS: Ibuprofen 600 MG TAB PO ×2 (05:57→20:13)
[2022-10-21 08:53] VITALS: BP 123/72; PULSE 84; RESP 16; TEMP 36.5; O2SAT 98
--- NOTE | 2022-10-21 11:20 | W.ANESPOSTOP ---
Postoperative Evaluation Date, Time and Location Date Performed: 10/21/22 Time Performed: 11:20 Patient Location: Obstetrics Vital Signs Most Recent Imported Vital Signs: Most Recent Vital Signs Temp Pulse Resp BP Pulse Ox 36.5 C 84 16 123/72 98 10/21/22 08:53 10/21/22 08:53 10/21/22 08:53 10/21/22 08:53 10/21/22 08:53 Pain Score Most Recent Pain Score: Most Recent Pain Score Pain Level 2 10/21/22 11:20 Assessment Mental Status: Awake (Alert & Oriented to Patient Baseline) Airway and Respiratory Function: Patent airway with normal (patient baseline) respiratory exam Cardiovascular Function: Hemodynamically Stable Hydration Status: Adequately Hydrated Nausea & Vomiting: No Nausea or Vomiting Pain: Pain is tolerable per patient Peripheral Nerve Block: Patient did not receive a nerve block Postoperative Comments:: Pt. doing well, no conerns.
[2022-10-21 11:27] VITALS: BP 133/83
--- NOTE | 2022-10-21 11:30 | W.PM.OBPNV1 ---
Date of service: 10/21/22 Time of Service: 11:30 Assessment and Plan Assessment and plan (1) Term of male : Status: Acute Assessment and plan: Caring for baby independently. Pain is managed well with oral analgesics. Voiding without difficulty. with difficulty O - BP 120-140/68-83, No symptoms of preeclampsia A - stable mother and baby , Post day 1, difficulty, preeclampsia without severe features. P - Discharge to home tomorrow. Routine post instructions. Receiving assistance from nurses with . Sulma ROBLES was consulted. Repeat preeclampsia serum labs this evening. [facility] Subjective Subjective Interval history: Mali feels comfortable and has been OOB and caring for her baby without difficulty. The baby has been having difficulty latching and mali has been pumping her breasts and using a nipple shield with fair effect. Exam Physical Exam Vital signs: Temp Pulse Resp BP Pulse Ox 97.7 F 84 16 133/83 98 10/21/22 08:53 10/21/22 08:53 10/21/22 08:53 10/21/22 11:27 10/21/22 08:53 Respiratory Exam Respiratory Exam: Normal Cardiovascular Exam Cardiovascular Exam: Normal Fundal Exam Fundus: Below Umbilicus and Firm Extremities Exam Extremity Exam: Normal Skin Exam Skin Exam: Normal Psychiatric Exam Psychiatric Exam: Normal Results Hemoglobin/Hematocrit: Hgb 13.1 g/dL (11.2-15.7) 10/19/22 17:47 Hct 39.8 % (36.0-46.0) 10/19/22 17:47 Abnormal Lab Findings: Abnormal Labs 10/19/22 10/19/22 17:47 17:47 WBC 17.30 H Sodium 135 L Alkaline Phosphatase 156 H Albumin 3.1 L
[2022-10-21 20:00] VITALS: BP 133/89; PULSE 96; RESP 16; TEMP 36.9; O2SAT 99
[2022-10-21] MEDS: Docusate Sodium 100 MG CAP PO (20:13)
[2022-10-21 20:17] LABS: HCT 35.6 % (36.0-46.0); HGB 11.9 g/dL (11.2-15.7); MCH 29.1 pg (27.0-33.0); MCHC 33.4 % (32.0-36.0); MCV 87 fL (80-95); Platelet Count 255 10^3/uL (130-400); RBC 4.09 10^6/uL (3.93-5.22); RDW 13.4 % (11.7-14.6); RDW-SD 42.1 fL; WBC 12.11 10^3/uL (4.4-10.8)
[2022-10-21 20:32] LABS: ALT 24 U/L (14-59); AST 41 U/L (15-37); Albumin 2.8 g/dL (3.4-5.0); Alkaline Phosphatase 123 U/L (46-116); Anion Gap 8.7 mmol/L (3-11); BUN 13 mg/dL (7-18); Bilirubin, Total 0.1 mg/dL (0.2-1.0); CO2 26.3 mmol/L (21.0-32.0); CREATININE 0.7 mg/dL (0.55-1.02); Calcium 9.1 mg/dL (8.5-10.1); Chloride 103 mmol/L (98-107); Estimated GFR 119.24 (mL/min/1.73m2); Glucose 86 mg/dL (74-106); Sodium 138 mmol/L (136-145); Total Protein 6.9 g/dL (6.4-8.2); Uric Acid 4.1 mg/dL (2.6-6.0)
[2022-10-22] VITALS (9 sets, daily range): BP systolic 129–167; BP diastolic 78–109; PULSE 82–84; RESP 16–18; TEMP 36.6; O2SAT 99
--- NOTE | 2022-10-22 04:08 | NUR.NOTE ---
Nursing Note:Seferino HAYNES aware of elevated BP early in shift and last BP. Evening Labs reviewed by CNM earlier as she confirmed with this RN. Pt is asymptomatic and is assuming care of with supportive at bedside.
[2022-10-22 10:49] LABS: HCT 37.6 % (36.0-46.0); HGB 12.6 g/dL (11.2-15.7); MCH 29.2 pg (27.0-33.0); MCHC 33.5 % (32.0-36.0); MCV 87 fL (80-95); MPV 9.7 fL (8.0-11.0); Platelet Count 261 10^3/uL (130-400); RBC 4.32 10^6/uL (3.93-5.22); RDW 13.4 % (11.7-14.6); RDW-SD 42.7 fL; WBC 10.68 10^3/uL (4.4-10.8)
[2022-10-22 10:58] LABS: ALT 24 U/L (14-59); AST 31 U/L (15-37); Albumin 2.8 g/dL (3.4-5.0); Alkaline Phosphatase 120 U/L (46-116); Anion Gap 7.3 mmol/L (3-11); BUN 10 mg/dL (7-18); Bilirubin, Total 0.1 mg/dL (0.2-1.0); CO2 26.7 mmol/L (21.0-32.0); CREATININE 0.7 mg/dL (0.55-1.02); Chloride 105 mmol/L (98-107); Estimated GFR 119.24 (mL/min/1.73m2); Glucose 100 mg/dL (74-106); Potassium 3.6 mmol/L (3.5-5.1); Sodium 139 mmol/L (136-145); Uric Acid 4.5 mg/dL (2.6-6.0)
[2022-10-22] MEDS: NIFEdipine 10 MG CAP PO ×2 (13:10→13:39)
[2022-10-22 13:26] LABS: LDH 227 U/L (81-234)
--- NOTE | 2022-10-22 14:24 | OBPPV_ITS ---
Date of service: 10/22/22 Time of Service: 14:24 Assessment and Plan Assessment and plan (1) Pre-eclampsia affecting childbirth: Status: Acute Assessment and plan: Dr. Freitas was consulted who recommended procardia 10 mg. with a repeat dose if the BP remains elevated. Will continue to observe BP and response to medication today. (2) Term of male : Status: Acute Assessment and plan: Caring for baby independently. Pain is managed well with oral analgesics. Voiding without difficulty. with difficulty and using a nipple shield due to poor latch. A - Post day 2 P - Consultation with Dr. Freitas who recommends continued observation of BP. Consider discharge later today or tomorrow if stable. Routine post instructions. (3) At risk for ineffective : Status: Acute Assessment and plan: Mali has been receiving assistance from the nurses and she met with Sulma ROBLES this morning and she found this helpful. Follow up with Sulma and with [facility] pediatrics. Subjective Subjective Interval history: Mali is feeling overwhelmed due to difficulty with due to poor latch. BP has been elevated this morning at 150-160/93-109. Exam Physical Exam Vital signs: Temp Pulse Resp BP Pulse Ox 97.9 F 84 16 159/109 H 99 10/22/22 07:50 10/22/22 07:50 10/22/22 07:50 10/22/22 12:25 10/22/22 07:50 Narrative: Labwork reviewed. AST was slightly elevated at 41 last night but has come down to normal range this morning at 31. LDH 227 today. Constitutional Constitutional: no acute distress Respiratory Exam Respiratory Exam: Normal Cardiovascular Exam Cardiovascular Exam: Normal Fundal Exam Fundus: Below Umbilicus and Firm Extremities Exam Extremity Exam: Normal Psychiatric Exam Psychiatric Exam: Normal (emotional this morning after meeting with her baby's doctor.) Results Hemoglobin/Hematocrit: Hgb 12.6 g/dL (11.2-15.7) 10/22/22 10:35 Hct 37.6 % (36.0-46.0) 10/22/22 10:35 Abnormal Lab Findings: Abnormal Labs 10/19/22 10/19/22 10/21/22 17:47 17:47 19:57 WBC 17.30 H Hct Sodium 135 L Total Bilirubin 0.1 L AST 41 H Alkaline Phosphatase 156 H 123 H Albumin 3.1 L 2.8 L 10/21/22 10/22/22 19:57 10:35 WBC 12.11 H Hct 35.6 L Sodium Total Bilirubin 0.1 L AST Alkaline Phosphatase 120 H Albumin 2.8 L
--- NOTE | 2022-10-22 15:28 | DSE_ITS ---
Date of service: 10/22/22 Time of Service: 15:28 DS: Diagnosis Discharge Diagnosis (1) Pre-eclampsia affecting childbirth: Status: Acute Asessment and Plan: [place]i received 2 doses of procardia 10 mg PO. BP 20 minutes after second dose was 154/93 and 1 hour after second dose was 149/83. In consult with Dr Freitas, will administer procardia 30 mg XL and discharge at 1700 or later this evening with a plan to return tomorrow morning to the center for BP check and that was scheduled. Signs of preeclampsia reviewed and discharge planned this evening. (2) Term of male : Status: Acute Asessment and Plan: Discharge this evening. (3) At risk for ineffective : Status: Acute Asessment and Plan: Plan for follow up appointment at [facility] pediatrics tomorrow morning. Discharge Plan Disposition Patient Disposition: Home Condition: Good Discharge Details Reason For Visit: Spontaneous Labor at 40 wks Admit Date/Time: 10/19/22 18:45 Admit Provider: Yolis Iglesias Attending Provider: Yolis Iglesias Primary Care Provider: Reena Barrett Home Meds and New Rx's Prescriptions: New nifedipine 30 mg Tablet Extended Release 30 mg PO DAILY Qty: 30 1RF No Action prenat.vits,re,[id number] Tablet 1 tab PO DAILY cholecalciferol (vitamin D3) 25 mcg (1,000 unit) capsule 25 mcg PO DAILY Saccharomyces boulardii [Daily Probiotic (S. boulardii)] 250 mg capsule 5,000 mmu cells PO DAILY albuterol sulfate [Proventil HFA] 90 mcg/actuation HFA aerosol inhaler 2 puff inhalation QID Qty: 8.5 1RF ascorbate calcium (vitamin C) 500 mg tablet 500 mg PO DAILY Discharge Instructions Stand Alone Forms: BC Instructions, BC Post Vaginal Deliver Activity:: Activity as Tolerated Equipment/Supplies:: No Equipment Needed Diet:: As Tolerated Discharge Orders Discharge Orders: Discharge Order (Routine); Ordered 10/22/22 Ordered By: Cherelle Gentile OB:DS Summary Summary Vaginal Delivery Method: Spontaneaous Episiotomy Description: None Laceration Description: None Laceration Extension: N/A Contraception Discussed Contraception Discussed: Yes Contraceptive Plan: Undecided, [place] Infant Gender-Baby A: Male weight: 7 lb 4.933 oz Status at Discharge Functional status at discharge: independent ambulation Overall status at discharge: patient is not back to baseline Mental Status: mental status grossly normal Speech and Movement: speech and movement normal Mood: congruent mood Affect: normal affect Exam Physical Exam Vital signs: Temp Pulse Resp BP Pulse Ox 97.9 F 84 16 149/83 H 99 10/22/22 07:50 10/22/22 07:50 10/22/22 07:50 10/22/22 14:54 10/22/22 07:50 PFSH All Active Problems At risk for ineffective (Acute) poor latch Term of male (Acute) Pre-eclampsia affecting childbirth (Acute) Weight gain, abnormal (Acute) weight 159 11/28 at [facility] H/O wrist surgery (Acute) Medical History (Updated 10/22/22 @ 14:32 by Cherelle Gentile CNM) COVID-19 affecting in second trimester + 06/11/22 Family history of cystic fibrosis Left wrist fracture Tachycardia URI (upper respiratory infection) Family History Mother Cancer ANAL CANCER Maternal Grandmother No problems noted. Maternal Grandfather No problems noted. Father Alcohol use disorder Paternal Grandmother No problems noted. Paternal Grandfather Alcohol use disorder Brother Cystic fibrosis carrier Brother No problems noted. Sister No problems noted. Maternal Aunt Diabetes Maternal Aunt Diabetes Maternal Cousin Cystic fibrosis Social History Smoking/Tobacco Use Status: Never Smoking risk assessment performed?: Yes Alcohol Intake: former Drug use: Never Substance use type: does not use Household members: significant other Sexually active: Yes Do you think of yourself as: straight/heterosexual Current gender identity: female Do you feel safe at home: Yes Do you feel safe in your relationship?: Yes Female Reproductive History Menstrual control method: none History History 1 Para 0 Hx # Term Pregnancies Multiple births Hx # Pregnancies Ectopic pregnancies AB induced Hx Number of Living Children AB spontaneous DS: Data Vitals/I&O Vitals and I&O: Vital Signs Temperature 97.9 F 10/22/22 07:50 Temperature 98.4 F 10/19/22 18:03 Temperature Source Oral 10/22/22 07:50 Pulse 84 10/22/22 07:50 Pulse 70 10/19/22 18:37 Pulse Rhythm Regular 10/22/22 08:05 Respiratory Rate 16 10/22/22 07:50 Blood Pressure 149/83 H 10/22/22 14:54 Blood Pressure 138/88 10/19/22 18:37 Blood Pressure Mean 105 10/22/22 14:54 Pulse Oximetry 99 10/22/22 07:50 Oxygen Delivery Method Room Air 10/19/22 20:23 Oxygen Flow Rate 0 10/19/22 20:23 Pain Level 2 10/21/22 21:13 Comment blood pressure reported to Tammy HAYNES, will review with to make plan of care 10/22/22 14:54 Intake & Output 10/21/22 10/22/22 10/22/22 23:59 11:59 23:59 Other: Urine Color Yellow Data Completed and Pending Labs on day of discharge: Labs from last 24 hours 10/22/22 10/22/22 10/22/22 10:35 10:35 10:35 WBC 10.68 RBC 4.32 Hgb 12.6 Hct 37.6 MCV 87 MCH 29.2 MCHC 33.5 RDW 13.4 Plt Count 261 MPV 9.7 Sodium 139 Potassium 3.6 Chloride 105 Carbon Dioxide 26.7 Anion Gap 7.3 BUN 10 Creatinine 0.7 Est GFR (CKD-EPI 2020) 119.24 Glucose 100 Uric Acid 4.5 Calcium 9.0 Total Bilirubin 0.1 L AST 31 ALT 24 Alkaline Phosphatase 120 H Lactate Dehydrogenase 227 Total Protein 7.0 Albumin 2.8 L 10/21/22 10/21/22 19:57 19:57 WBC 12.11 H RBC 4.09 Hgb 11.9 Hct 35.6 L MCV 87 MCH 29.1 MCHC 33.4 RDW 13.4 Plt Count 255 MPV 10.0 Sodium 138 Potassium 4.0 Chloride 103 Carbon Dioxide 26.3 Anion Gap 8.7 BUN 13 Creatinine 0.7 Est GFR (CKD-EPI 2020) 119.24 Glucose 86 Uric Acid 4.1 Calcium 9.1 Total Bilirubin 0.1 L AST 41 H ALT 24 Alkaline Phosphatase 123 H Lactate Dehydrogenase Total Protein 6.9 Albumin 2.8 L
[2022-10-22] MEDS: NIFEdipine-CR 30 MG TABCR PO (17:01)
--- NOTE | 2022-10-22 18:23 | W.OBCONSULT ---
Date of service: 10/22/22 Time of Service: 18:23 Assessment and Plan Assessment and plan (1) Pre-eclampsia affecting childbirth: Status: Acute Assessment and plan: BP improved on PO Procardia 30 mg XL. Follow up tomorrow for BP check History of Present Illness History of Present Illness Chief Complaint: Elevated blood pressure PPD #2 Narrative: Patient seen with elevated BP 160/100 with no symptoms. Labs normal. Recieved PO procardia, 10 mg x 2 doses with improved BP. Will D/C home on PO procardia, 30XL daily. Follow up in AM for BP check Review of Systems All systems reviewed & are unremarkable except as noted in HPI and below Constitutional Constitutional: Reports system reviewed and no additional complaints, except as documented Eyes Eyes: Reports system reviewed and no additional complaints, except as documented Cardiovascular Cardiovascular: Reports system reviewed and no additional complaints, except as documented Respiratory Respiratory: Reports system reviewed and no additional complaints, except as documented Gastrointestinal Gastrointestinal: Reports system reviewed and no additional complaints, except as documented Musculoskeletal Musculoskeletal: Reports system reviewed and no additional complaints, except as documented Neurologic Neurologic: Reports system reviewed and no additional complaints, except as documented PFSH All Active Problems At risk for ineffective (Acute) poor latch Term of male (Acute) Pre-eclampsia affecting childbirth (Acute) Weight gain, abnormal (Acute) weight 159 11/28 at [facility] H/O wrist surgery (Acute) Medical History (Updated 10/22/22 @ 14:32 by Cherelle Gentile CNM) COVID-19 affecting in second trimester + 06/11/22 Family history of cystic fibrosis Left wrist fracture Tachycardia URI (upper respiratory infection) Family History Mother Cancer ANAL CANCER Maternal Grandmother No problems noted. Maternal Grandfather No problems noted. Father Alcohol use disorder Paternal Grandmother No problems noted. Paternal Grandfather Alcohol use disorder Brother Cystic fibrosis carrier Brother No problems noted. Sister No problems noted. Maternal Aunt Diabetes Maternal Aunt Diabetes Maternal Cousin Cystic fibrosis Social History Smoking/Tobacco Use Status: Never Smoking risk assessment performed?: Yes Alcohol Intake: former Drug use: Never Substance use type: does not use Household members: significant other Sexually active: Yes Do you think of yourself as: straight/heterosexual Current gender identity: female Do you feel safe at home: Yes Do you feel safe in your relationship?: Yes Female Reproductive History Menstrual control method: none History History 1 Para 0 Hx # Term Pregnancies Multiple births Hx # Pregnancies Ectopic pregnancies AB induced Hx Number of Living Children AB spontaneous Exam Const General: cooperative, healthy appearing, comfortable and no acute distress Nutritional Appearance: average body habitus Eyes General: appearance normal, both eyes and all related structures Neck Neck: normal visual inspection and supple Resp Effort & Inspection: normal respiratory effort, no audible wheezes and no cough Cardio Rate: regular rate Neuro General: patient alert, patient awake and patient oriented x3 Extrem General: normal to inspection and no calf tenderness bilaterally Results Last Vital Signs Temp 97.9 F 10/22/22 07:50 Pulse 84 10/22/22 07:50 Resp 16 10/22/22 07:50 BP 149/83 H 10/22/22 14:54 Pulse Ox 99 10/22/22 07:50 Labs 10/22/22 10:35 10/22/22 10:35 Labs: Laboratory Results - last 24 hr 10/21/22 10/21/22 10/22/22 19:57 19:57 10:35 WBC 12.11 H RBC 4.09 Hgb 11.9 Hct 35.6 L MCV 87 MCH 29.1 MCHC 33.4 RDW 13.4 Plt Count 255 MPV 10.0 Sodium 138 139 Potassium 4.0 3.6 Chloride 103 105 Carbon Dioxide 26.3 26.7 Anion Gap 8.7 7.3 BUN 13 10 Creatinine 0.7 0.7 Est GFR (CKD-EPI 2020) 119.24 119.24 Glucose 86 100 Uric Acid 4.1 4.5 Calcium 9.1 9.0 Total Bilirubin 0.1 L 0.1 L AST 41 H 31 ALT 24 24 Alkaline Phosphatase 123 H 120 H Lactate Dehydrogenase Total Protein 6.9 7.0 Albumin 2.8 L 2.8 L 10/22/22 10/22/22 10:35 10:35 WBC 10.68 RBC 4.32 Hgb 12.6 Hct 37.6 MCV 87 MCH 29.2 MCHC 33.5 RDW 13.4 Plt Count 261 MPV 9.7 Sodium Potassium Chloride Carbon Dioxide Anion Gap BUN Creatinine Est GFR (CKD-EPI 2020) Glucose Uric Acid Calcium Total Bilirubin AST ALT Alkaline Phosphatase Lactate Dehydrogenase 227 Total Protein Albumin
== END 2022-10-22 18:20 | disposition home or self-care (01) | DRG 807 ==
LOC: OBS 10-21 18:44 → BCD 10-22 12:53
PROVIDERS: Advanced Practice Midwife; Admitting Provider Advanced Practice Midwife; PCP Family Medicine; Visit Provider Advanced Practice Midwife
DX: O14.04 Mild to moderate pre-eclampsia, complicating childbirth (principal); Z37.0 Single live birth; Z3A.40 40 weeks gestation of pregnancy; O99.824 Streptococcus B carrier state complicating childbirth; O76 Abnormality in fetal heart rate and rhythm complicating labor and delivery
CPT/HCPCS: 36415; 80053; 85027; 86850; 86900; 86901; 96365; 96366; 59025; 82565; 83615; 84156; 84550; J3490

== ENCOUNTER 2022-10-23 08:17 | Outpatient (CLI) | payer BC, SELFPAY ==
[2022-10-23 10:44] VITALS: BP 158/91; PULSE 102; RESP 18
[2022-10-23] MEDS: NIFEdipine 10 MG CAP PO (11:32)
[2022-10-23 11:39] LABS: ALT 31 U/L (14-59); AST 30 U/L (15-37); Alkaline Phosphatase 120 U/L (46-116); Anion Gap 7.2 mmol/L (3-11); BUN 10 mg/dL (7-18); Bilirubin, Total 0.2 mg/dL (0.2-1.0); CO2 26.8 mmol/L (21.0-32.0); CREATININE 0.8 mg/dL (0.55-1.02); Calcium 9.1 mg/dL (8.5-10.1); Chloride 103 mmol/L (98-107); Estimated GFR 101.59 (mL/min/1.73m2); Glucose 100 mg/dL (74-106); HGB 12.9 g/dL (11.2-15.7); MCH 29.1 pg (27.0-33.0); MCHC 33.1 % (32.0-36.0); MCV 88 fL (80-95); MPV 9.6 fL (8.0-11.0); Platelet Count 307 10^3/uL (130-400); Potassium 3.7 mmol/L (3.5-5.1); RBC 4.43 10^6/uL (3.93-5.22); RDW 13.2 % (11.7-14.6); RDW-SD 42.9 fL; Sodium 137 mmol/L (136-145); Total Protein 7.2 g/dL (6.4-8.2); Uric Acid 4.9 mg/dL (2.6-6.0); WBC 10.19 10^3/uL (4.4-10.8)
[2022-10-23 11:58] VITALS: BP 156/89; PULSE 91
[2022-10-23 14:13] VITALS: BP 114/68; PULSE 113
--- NOTE | 2022-10-23 15:01 | W.PM.PROGNOT ---
Date of Service Date of service: 10/23/22 Time of Service: 15:01 Assessment and Plan Assessment and plan (1) Pre-eclampsia in period: Status: Acute Assessment and plan: preeclampsia labs drawn and are WNL. Consult with Dr Melo who recommends continuing procardia 30 mg ER daily and to take her BP at home tomorrow if possible. Signs of preeclampsia reviewed. Return to the Center in 2 days for repeat BP check. rest at home as much as possible. The baby has a weight check also scheduled in 2 days due to feeding difficulties. Subjective Subjective Interval history since last seen: [place] is here for BP check. Shewas discharged from the center yesterday with a prescription for procardia 30 mg ER which she did take this morning. I consulted with Dr Freitas who recommended procardia 10 mg PO. BP 30 minutes after procardia was 156/89. No edema. [place] had a headache this morning which has resolved. Exam Const General: no acute distress Extrem General: normal to inspection and no edema Other: 2-3 + patellar reflexes Objective Last Vital Signs Pulse 113 H 10/23/22 14:13 Resp 18 10/23/22 10:44 BP 114/68 10/23/22 14:13 Laboratory Results - last 24 hr 10/23/22 10/23/22 10/23/22 11:15 11:15 12:11 WBC 10.19 RBC 4.43 Hgb 12.9 Hct 39.0 MCV 88 MCH 29.1 MCHC 33.1 RDW 13.2 Plt Count 307 MPV 9.6 Sodium 137 Potassium 3.7 Chloride 103 Carbon Dioxide 26.8 Anion Gap 7.2 BUN 10 Creatinine 0.8 Est GFR (CKD-EPI 2020) 101.59 Glucose 100 Uric Acid 4.9 Calcium 9.1 Total Bilirubin 0.2 AST 30 ALT 31 Alkaline Phosphatase 120 H Lactate Dehydrogenase Cancelled Total Protein 7.2 Albumin 3.0 L Add-On Test Request 10/23/22 12:47 WBC RBC Hgb Hct MCV MCH MCHC RDW Plt Count MPV Sodium Potassium Chloride Carbon Dioxide Anion Gap BUN Creatinine Est GFR (CKD-EPI 2020) Glucose Uric Acid Calcium Total Bilirubin AST ALT Alkaline Phosphatase Lactate Dehydrogenase Total Protein Albumin Add-On Test Request TNP Time Spent with Patient Time Spent with Patient: >50 minutes Time was spent: preparing to see the patient(eg.review tests), obtaining and/or reviewing separately otained hiistory, ordering medications,tests, procedures, referring, communicating with other health rn progressive care, indepentently interpreting results, counseling the patient and care coordination
== END 2022-10-23 12:30 | disposition home or self-care (01) ==
LOC: BCD 08:32 → OBS 10:13
PROVIDERS: PCP Family Medicine; Visit Provider Advanced Practice Midwife
DX: O14.95 Unspecified pre-eclampsia, complicating the puerperium (principal)
CPT/HCPCS: 36415; 80053; 85027; 99211; 83615; 84550

== ENCOUNTER 2022-10-25 08:01 | Outpatient (CLI) | payer BC, SELFPAY ==
[2022-10-25 13:10] VITALS: BP 161/107; PULSE 74
[2022-10-25 13:33] VITALS: BP 139/91; BP 143/106; PULSE 87; PULSE 91
[2022-10-25 13:39] VITALS: BP 148/86; PULSE 80
[2022-10-25 14:07] VITALS: BP 146/90
== END 2022-10-25 14:15 ==
LOC: BCD 08:02
PROVIDERS: PCP Family Medicine; Visit Provider Advanced Practice Midwife
CPT/HCPCS: 99211

== ENCOUNTER 2022-11-30 12:23 | Outpatient (REF) | payer BC, SELFPAY ==
--- NOTE | 2022-11-30 11:30 | PAPFT_PTH ---
PATIENT: [place] Garrido LOC: [facility] U#:[id number] AGE/SX: 32/F ROOM: RE11/30/[address]: Yolis Iglesias CNM : 1990 BED: DIS: 11/30/2022 SPEC #: [id number] RECD: 11/30/22 13:14 STATUS: ALEC REBrannon #: [id number] NANCY: 11/30/22 11:[address]: Yolis Iglesias DEPT: [facility] Cytology RECD BY: Jessica Lange ENTERED: 11/30/22 13:14 SP TYPE: PAPFT OTHR DR: Reena Barrett Tissues: 1 - CX/ENDOCX FOR PAP SMEARS Procedures: PAP THIN PREP/UVM Screening HPV DNA PROBE Comments: [id number]
== END 2022-11-30 12:24 | disposition home or self-care (01) ==
LOC: LBN 12:23
PROVIDERS: PCP Family Medicine; Visit Provider Advanced Practice Midwife
DX: Z11.51 Encounter for screening for human papillomavirus (HPV) (principal)
CPT/HCPCS: 88142; 87624

== ENCOUNTER 2023-07-23 16:44 | Outpatient (REF) | payer OTHER, SELFPAY ==
[2023-07-23 20:39] LABS: Bilirubin Negative (Negative); Blood Negative (Negative); Clarity Clear (Clear); Glucose Negative (Negative); Ketones Negative (Negative); Leukocyte Esterase Large (Negative); Nitrite Negative (Negative); Urobilinogen 0.2 mg/dL (Up to 0.2); pH 7.5 (5-8)
[2023-07-23 20:47] LABS: Bacteria Few HPF (Negative); C & S Indicated? No/Sq. Contamination; Casts Negative LPF (Negative); Crystals Negative HPF (Negative); Epithelial Cells Many HPF (Negative); Mucus Trace (Negative); RBC Negative HPF (0-2)
== END 2023-07-23 16:45 | disposition home or self-care (01) ==
LOC: LBN 16:44
PROVIDERS: PCP Family Medicine; Visit Provider Nurse Practitioner Family
DX: N76.0 Acute vaginitis (principal); R30.0 Dysuria; R39.89 Other symptoms and signs involving the genitourinary system
CPT/HCPCS: 81003; 81015; 87480; 87510; 87660

== ENCOUNTER 2024-01-02 19:33 | Outpatient (REF) | payer OTHER, SELFPAY ==
[2024-01-13 09:45] LABS: EBNA IgG Positive (Negative); VCA IgG Positive (Negative); VCA IgM Negative (Negative)
[2024-01-13 09:47] LABS: EBV Interpretation See Comments
== END 2024-01-02 19:34 | disposition home or self-care (01) ==
LOC: LBN 19:33
PROVIDERS: PCP Family Medicine; Visit Provider Nurse Practitioner Family
DX: J02.9 Acute pharyngitis, unspecified (principal); R50.9 Fever, unspecified; R53.83 Other fatigue
CPT/HCPCS: 86664; 86665; 87070; 87798

== ENCOUNTER 2024-01-28 09:25 | Outpatient (REF) | payer OTHER, SELFPAY ==
[2024-01-28 12:29] LABS: Bilirubin Negative (Negative); Blood Negative (Negative); Clarity Sl Cloudy (Clear); Glucose Negative (Negative); Ketones Negative (Negative); Leukocyte Esterase Moderate (Negative); Nitrite Negative (Negative); Specific Gravity 1.015 (1.005-1.025); Urobilinogen 0.2 mg/dL (Up to 0.2)
[2024-01-28 12:37] LABS: Bacteria Rare HPF (Negative); Casts Negative LPF (Negative); Crystals Negative HPF (Negative); Epithelial Cells Few HPF (Negative); Mucus Negative (Negative); RBC Negative HPF (0-2)
[2024-01-28 12:38] LABS: C & S Indicated? Yes
== END 2024-01-28 09:26 | disposition home or self-care (01) ==
LOC: LBN 09:25
PROVIDERS: PCP Family Medicine; Visit Provider Physician Assistant
DX: R30.0 Dysuria (principal); R39.9 Unspecified symptoms and signs involving the genitourinary system
CPT/HCPCS: 81003; 81015; 87086; 87480; 87510; 87660

== ENCOUNTER 2024-05-18 02:41 | Outpatient (CLI) | payer OTHER, SELFPAY ==
[2024-05-18 10:12] LABS: Panorama Kit Sent via Fed Ex
[2024-05-18 10:17] LABS: Abs Immature Grans 0.02 10^3/uL (0.0-0.06); Absolute Basophil Count 0.04 10^3/uL (0.0-0.2); Absolute Eosinophil Count 0.29 10^3/uL (0.0-0.7); Absolute Lymphocyte Count 1.88 10^3/uL (1.2-3.4); Absolute Monocyte Count 0.53 10^3/uL (0.1-0.8); Absolute Neutrophil Count 6.05 10^3/uL (1.2-6.7); Basophils % 0.5 %; Eosinophils % 3.3 %; HCT 37.5 % (36.0-46.0); HGB 12.9 g/dL (11.2-15.7); Immature Grans % 0.2 %; Lymphocytes % 21.3 %; MCH 29.5 pg (27.0-33.0); MCHC 34.4 % (32.0-36.0); MCV 86 fL (80-95); MPV 9.4 fL (8.0-11.0); Neutrophils % 68.7 %; Platelet Count 281 10^3/uL (130-400); RBC 4.38 10^6/uL (3.93-5.22); RDW-SD 37.6 fL; WBC 8.81 10^3/uL (4.4-10.8)
[2024-05-18 10:53] LABS: ALT 17 U/L (14-59); AST 18 U/L (15-37); Albumin 3.4 g/dL (3.4-5.0); Alkaline Phosphatase 60 U/L (46-116); Anion Gap 10.6 mmol/L (3-11); BUN 7 mg/dL (7-18); Bilirubin, Total 0.22 mg/dL (0.2-1.0); CO2 24.4 mmol/L (21.0-32.0); CREATININE 0.6 mg/dL (0.55-1.02); Calcium 8.7 mg/dL (8.5-10.1); Chloride 104 mmol/L (98-107); Estimated GFR 122.23 (mL/min/1.73m2); Glucose 86 mg/dL (74-106); Potassium 3.6 mmol/L (3.5-5.1); Sodium 139 mmol/L (136-145)
[2024-05-18 17:57] LABS: Hepatitis B Surface Ag Negative (Negative)
[2024-05-18 18:28] LABS: HIV-1/2 Ag & Ab Screen Negative (Negative)
[2024-05-18 18:34] LABS: Hepatitis C Ab w Rflx HCV PCR Negative (Negative)
[2024-05-19 10:14] LABS: Rubella IgG Ab (UVM) Positive (See Note)
[2024-05-19 10:16] LABS: Varicella IgG Antibody Positive (See Note)
[2024-05-20 21:23] LABS: Syphilis IgG w/Reflex Nonreactive (Nonreactive)
== END 2024-05-18 02:42 | disposition home or self-care (01) ==
LOC: LBO 02:41
PROVIDERS: PCP Family Medicine; Visit Provider Advanced Practice Midwife
DX: Z34.91 Encounter for supervision of normal pregnancy, unspecified, first trimester (principal); O09.292 Supervision of pregnancy with other poor reproductive or obstetric history, second trimester
CPT/HCPCS: 36415; 80053; 86787; 86803; 86850; 86900; 86901; 87340; 87389; 85025; 86762; 86780

== ENCOUNTER 2024-05-18 09:20 | Outpatient (REF) | payer OTHER, SELFPAY ==
[2024-05-19 11:41] LABS: Chlamydia Result Negative (Negative); GC Result Negative (Negative)
== END 2024-05-18 09:21 | disposition home or self-care (01) ==
LOC: LBN 09:20
PROVIDERS: PCP Family Medicine; Visit Provider Advanced Practice Midwife
DX: Z34.92 Encounter for supervision of normal pregnancy, unspecified, second trimester (principal); Z3A.14 14 weeks gestation of pregnancy
CPT/HCPCS: 87491; 87591; 87086; 87480; 87510; 87660

== ENCOUNTER 2024-06-15 03:55 | Outpatient (CLI) | payer OTHER, SELFPAY ==
[2024-06-18 12:52] LABS: AFP 29.7 ng/mL; Cigarette smoking status non-Smoker; GA used in risk estimate Dates estimate; IVF Pregnancy No; Initial or repeat testing Initial testing; Insulin dependent diabetes No; Maternal Weight 194 lbs; Number of Fetuses 1; Prev Pregnancy w/NTD No; RECOMMENDED FOLLOW UP None.; Results Summary Normal risk
== END 2024-06-15 03:56 | disposition home or self-care (01) ==
LOC: LBO 03:55
PROVIDERS: PCP Family Medicine; Visit Provider Advanced Practice Midwife
DX: Z34.91 Encounter for supervision of normal pregnancy, unspecified, first trimester (principal)
CPT/HCPCS: 36415; 82105

== ENCOUNTER 2024-06-15 16:17 | Outpatient (REF) | payer OTHER, SELFPAY ==
[2024-06-15 19:23] LABS: COMMENT (LAB VIEW ONLY) 154.49 mg/dL; PROTEIN 11.9 mg/dL; Prot/Crea Ur Ratio 0.07
== END 2024-06-15 16:18 | disposition home or self-care (01) ==
LOC: LBN 16:17
PROVIDERS: PCP Family Medicine; Visit Provider Advanced Practice Midwife
DX: O09.292 Supervision of pregnancy with other poor reproductive or obstetric history, second trimester (principal)
CPT/HCPCS: 82565; 84156

== ENCOUNTER 2024-08-20 02:31 | Outpatient (CLI) | payer OTHER, SELFPAY ==
[2024-08-20 10:45] LABS: HCT 36.9 % (36.0-46.0); HGB 12.2 g/dL (11.2-15.7); MCH 29.5 pg (27.0-33.0); MCHC 33.1 % (32.0-36.0); MCV 89 fL (80-95); MPV 9.6 fL (8.0-11.0); Platelet Count 261 10^3/uL (130-400); RBC 4.13 10^6/uL (3.93-5.22); RDW 12.4 % (11.7-14.6); RDW-SD 40.5 fL
[2024-08-20 10:56] LABS: Glucose,1 Hr (Glucola) 126 mg/dL (80-140)
== END 2024-08-20 02:32 | disposition home or self-care (01) ==
PROVIDERS: PCP Family Medicine; Visit Provider Advanced Practice Midwife
DX: Z34.92 Encounter for supervision of normal pregnancy, unspecified, second trimester (principal)
CPT/HCPCS: 36415; 82950; 85027

== ENCOUNTER 2024-09-18 00:11 | Outpatient (CLI) | payer OTHER, SELFPAY ==
--- NOTE | 2024-09-18 06:30 | DI.US_ITS ---
Exam(s) US OB CLAUDIO WEIGHT EXAM: US OB CLAUDIO WEIGHT CLINICAL HISTORY: hypertension essential, I10. TECHNIQUE: Transabdominal obstetrical ultrasound performed. COMPARISON: US US OB 2-3 TRIMESTER from 06/30/2024 FINDINGS:: Number of fetuses: 1 position: CEPHALIC Placental location: ANTERIOR No evidence of previa. The cervix appears normal. BIOMETRIC DATA: BPD: 8.22cm, 33weeks HC: 30.33cm, 33weeks 5days AC: 28.46cm, 32weeks 3days FL: 6.34cm, 32weeks 5days EFW: 2,040.78g, 4lb 8.28oz, 59.2% Composite Age: 33weeks TORSTEN: 11/06/2024 Heart Rate: 127bpm Amniotic fluid index: 17.26cm. Visually, amount of fluid is within normal limits. IMPRESSION: size and weight are within the expected range. DATA REPOSITORY:
== END 2024-09-18 00:31 ==
PROVIDERS: PCP Family Medicine; Visit Provider Advanced Practice Midwife
DX: I10 Essential (primary) hypertension (principal)
CPT/HCPCS: 76816

== ENCOUNTER 2024-10-15 19:04 | Outpatient (REF) | payer OTHER, SELFPAY | END 2024-10-15 19:05 | disposition home or self-care (01) | LOC: LBN 19:04 | PROVIDERS: PCP Family Medicine; Visit Provider Advanced Practice Midwife | DX: Z34.93 Encounter for supervision of normal pregnancy, unspecified, third trimester (principal) | CPT/HCPCS: 87081 ==

== ENCOUNTER 2024-10-29 15:37 | Outpatient (CLI) | payer OTHER, SELFPAY ==
[2024-10-29 16:13] LABS: HCT 31.7 % (36.0-46.0); HGB 11.2 g/dL (11.2-15.7); MCH 30.6 pg (27.0-33.0); MCHC 35.3 % (32.0-36.0); MCV 87 fL (80-95); MPV 9.9 fL (8.0-11.0); Platelet Count 245 10^3/uL (130-400); RBC 3.66 10^6/uL (3.93-5.22); RDW 12.5 % (11.7-14.6); RDW-SD 39.8 fL; WBC 11.61 10^3/uL (4.4-10.8)
[2024-10-29 16:24] VITALS: BP 142/82; PULSE 98
[2024-10-29 16:32] LABS: ALT 15 U/L (14-59); AST 18 U/L (15-37); Albumin 2.8 g/dL (3.4-5.0); Alkaline Phosphatase 136 U/L (46-116); Anion Gap 9.1 mmol/L (3-11); BUN 9 mg/dL (7-18); Bilirubin, Total 0.2 mg/dL (0.2-1.0); CO2 24.9 mmol/L (21.0-32.0); CREATININE 0.5 mg/dL (0.55-1.02); Calcium 8.8 mg/dL (8.5-10.1); Chloride 104 mmol/L (98-107); Estimated GFR 127.72 (mL/min/1.73m2); Glucose 99 mg/dL (74-106); Potassium 3.7 mmol/L (3.5-5.1); Sodium 138 mmol/L (136-145); Total Protein 6.5 g/dL (6.4-8.2)
[2024-10-29 16:40] VITALS: BP 145/70; PULSE 89
[2024-10-29 16:52] VITALS: BP 145/70; PULSE 89
[2024-10-29 16:55] LABS: COMMENT (LAB VIEW ONLY) 88.43 mg/dL; PROTEIN 36.9 mg/dL; Prot/Crea Ur Ratio 0.41
--- NOTE | 2024-10-29 17:06 | PDOC.NST_ITS ---
Date of service: 10/29/24 Time of Service: 16:30 NST Evaluation Reason for NST Reasons for Nonstress Test: GESTATIONAL HYPERTENSION Gestational Age Gestational Age in Weeks and Days: 38 Weeks and 0Days Test and Monitor Explained Test/Monitor Explained: Test Explained, Monitor Explained and Patient Verbalized Understanding Vital Signs Blood Pressure: 145/70 Pulse: 89 Urine Results Urine Protein: Positive Urine Ketones: Negative Urine Glucose: Negative Urine Blood: Negative NST Information Date on Monitor: 10/29/24 Time on Monitor: 15:35 Date off Monitor: 10/29/24 Time off Monitor: 16:41 Total Time on Monitor: 66 NST Interventions: PO Hydration Contraction Frequency: none NST Evaluation Patient States Movement: Present FHR Baseline: 130 Variability: Moderate 6-25 bpm Accelerations: 15x15 Decelerations: None NST Results: Reactive Note Ultrasound Done: N/A. 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
[2024-10-29 22:08] VITALS: BP 145/70; PULSE 89
== END 2024-10-29 16:45 ==
LOC: BCD 15:37 → OBS 16:03
PROVIDERS: PCP Family Medicine; Visit Provider Advanced Practice Midwife
DX: O13.3 Gestational [pregnancy-induced] hypertension without significant proteinuria, third trimester (principal); Z3A.38 38 weeks gestation of pregnancy
CPT/HCPCS: 80053; 85027; 59025; 82565; 84156

== ENCOUNTER 2024-10-29 23:08 | Observation (INO) | payer OTHER, SELFPAY ==
[2024-10-29 23:13] VITALS: BP 138/83; PULSE 72; RESP 16; TEMP 36.7; O2SAT 96
--- NOTE | 2024-10-29 23:16 | HPE_ITS ---
Date of service: 10/29/24 Time of Service: 23:16 Assessment and Plan Assessment and plan (1) Gestational hypertension affecting second : Status: Acute Assessment and plan: A: 33 yo @ 38 wks, presenting with mild PAULINO, BP here nml to mild range Seen earlier today for checkup, NST, and hypertension labs CMP/CBC were nml, u-pr/cr 0.41, plan made to collect 24 hr urine P: Repeat NST, serial BP's, start 24 hr urine collection in the morning Tylenol 1 gm PO now; Discharge to home, will be in to drop off urine and BP check 10/31 @ 1000 OB-HPI Labor/Delivery History of Present Illness Reason for Visit: Gestional HTN at 38 weeks Chief Complaint: Maternal Discomfort (Pt states she is feeling off and has a headache.) , Associated Signs and Symptoms of Maternal Discomfort: mild headache resolved with tylenol. TORSTEN Calculator Estimated Delivery Date Method Current WG Current Estimate 11/12/24 LMP (Certain) 38w 1d History of Present Expected Delivery Route/Plan - CNM FOB/ - Faisal Garrido (his first child) Will learn of gender at , if male will circ Desires epidural after using tub and nitrous GBS negative Specific Issues/Plan 1. H/o immediate pp PEC in prior , some mildly elevated BPs this , initial CMP=nml, P:Cr 0.07 - Recommend ASA at 12-16wks - Will start checking BPs at home and if consistently elevated may need to start medication. 2. Family hx CF Carriers: brother & maternal cousin, pt is SMA/CF neg, 3. CfDNA low risk, AFP neg 4. 5-Ps neg 5. Declines IBCLC inpatient support , would like CNM help with first latch and ongoing support Assessment: History Reviewed & Current Review of Systems Narrative: ROS completed and noncontributory other than HPI PFSH All Active Problems (Updated 10/29/24 @ 23:20 by Yolis Iglesias) Gestational hypertension affecting second (Acute) Essential hypertension (Acute) History of pre-eclampsia in prior , currently in second trimester (Acute) (Acute) Medical History (Updated 10/29/24 @ 23:20 by Yolis Iglesias) Pre-eclampsia in period Managed with PO meds x6wks At risk for ineffective difficulty with first baby Family history of cystic fibrosis Left wrist fracture Surgical History H/O wrist surgery Family History (Updated 10/01/24 @ 15:56 by Cherelle Gentile CNM) Mother Cancer ANAL CANCER, has a colostomy, diagnosed age 55. Maternal Grandmother No problems noted. Maternal Grandfather No problems noted. Father Alcohol use disorder Hypertension Paternal Grandmother No problems noted. Paternal Grandfather Alcohol use disorder Brother Cystic fibrosis carrier Brother No problems noted. Sister No problems noted. Maternal Aunt Diabetes Maternal Aunt Diabetes Maternal Cousin Cystic fibrosis Social History Smoking/Tobacco Use Status: Never Smoking risk assessment performed?: Yes Alcohol Intake: former Drug use: Never Substance use type: does not use Household members: significant other Sexually active: Yes Do you think of yourself as: straight/heterosexual Current gender identity: female Do you feel safe at home: Yes Do you feel safe in your relationship?: Yes Female Reproductive History Menstrual control method: none History History 2 Para 1 Hx # Term Pregnancies 1 Multiple births 0 Hx # Pregnancies 0 Ectopic pregnancies 0 AB induced 0 Hx Number of Living Children 1 AB spontaneous 0 Past Pregnancies Del. Date GA/Weeks # Preg Succ Route Wgt Sex Labor Lgth Anesth esia Location [facility] 10/20/22 40 No Yes vaginal 7 lb 4.93 oz Male 16 [facility] [place] [facility] Delivery Date: 10/20/22 Last Updated by: Cherelle Gentile CNM Spontaneous labor. Long second stage, Pre-eclampsia, apgars 4/9, GBS pos. Difficult due to poor latch Meds Allergies and Home Medications Allergies Allergy/AdvReac Type Severity Reaction Status Date / Time amoxicillin Allergy Hives Verified 10/29/24 15:23 Home Medications ?Medication ?Instructions ?Recorded ?Confirmed ?Type cholecalciferol (vitamin D3) 25 25 mcg PO DAILY 03/07/22 10/29/24 History mcg (1,000 unit) capsule ascorbate calcium (vitamin C) 500 500 mg PO DAILY 08/06/22 10/29/24 History mg tablet docosahexaenoic acid 200 mg mg PO 04/07/24 10/29/24 History capsule ( DHA) aspirin 81 mg tablet,delayed 162 mg (2 x 81 mg) PO DAILY #30 09/18/24 10/29/24 Rx release tabs Exam Physical Exam Vital signs: initial BP 130's over 80's afebrile Vital Signs Reviewed: Yes Constitutional Constitutional: no acute distress and cooperative Detailed Labor and Delivery Exam Dilation: 1 Effacement (%): 20 station: -3 Cervix position: posterior Consistency: medium Amniotic Membrane Status: Intact Fetus A Heart Rate Baseline: 145 Monitor Accelerations: Present Monitor Decelerations: None Variability: Moderate (6-25 BPM) Categories: Category I HEENT Exam HEENT Exam: Normal Neck Exam Neck Exam: Normal Chest/Brest/Axilla Exam Chest Exam: Normal Breast Exam Breast Exam: Not Done Respiratory Exam Respiratory Exam: Normal Cardiovascular Exam Cardiovascular Exam: Normal Abdominal Exam Abdominal Exam: Normal (gravid, nontender) Rectal Exam Rectal Exam: Normal Exam Exam: Normal Extremities Exam Extremities Exam: Normal Back/Spine/Pelvis Exam Back Exam: Normal Pelvis Adequate: Yes Skin Exam Skin Exam: Normal Neurological Exam Neurological Exam: Normal Psychiatric Exam Psychiatric Exam: Normal Results Results Group Beta Strep: Negative Blood Type: O+ Rubella Status: Immune Varicella Immunity: Immune Risk Assessment Risk for Shoulder Dystocia Historical/Initial OB: NEGATIVE FOR: Pelvic Abnormality, Pre- BMI>30, Previous Shoulder Dystocia or Previous Macrosomia 36 Weeks: NEGATIVE FOR: Current Gestational DM, EFW>4500gms or Maternal Weight Gain>40lbs Increased Risk?: No Risk for Pre-Eclampsia Date Initiated/Initials: 05/18/24 Yes, if one or more: POSTIVE FOR: Hx Pre-E/Gest HTN; NEGATIVE FOR: Chronic HTN, Multiple Gestation, Pre-gestational DM, Renal Disease, Systemic Lupus or APA Syndrome Yes, if 2 or more: NEGATIVE FOR: Nulliparity, Age>= 35 yrs, >10yr btwn pregnancies, BMI>30, ethinicty, Mother/Sister w/ Pre-E or Previous IUGR Risk for Post- Hemorrhage Initial: NEGATIVE FOR: Multiple Gestation, Previous PPH, Known Clotting Deficiency, Grand Multiparity or Anticoagulation 36 Weeks: NEGATIVE FOR: Anemia, hgb<10, Low platelets(thrombocytopenia), Gestational HTN or Pre-E, Polyhydraminios or EFW>4500gms Counseled re: Active Management: Yes Risks Reviewed Risks Reviewed Upon Admission: Yes
[2024-10-29 23:22] VITALS: BP 138/83; PULSE 72; RESP 16; TEMP 36.7; O2SAT 96
[2024-10-29] MEDS: Acetaminophen 500 MG TAB 1000 MG PO (23:37)
[2024-10-29 23:41] VITALS: BP 140/76; PULSE 76
--- NOTE | 2024-10-30 00:22 | DSE_ITS ---
Date of service: 10/30/24 Time of Service: 00:22 DS: Diagnosis Discharge Diagnosis (1) Gestational hypertension affecting second : Status: Acute Discharge Plan Disposition Patient Disposition: Home Condition: Good Discharge Details Reason For Visit: Gestional HTN at 38 weeks Admit Date/Time: 10/29/24 23:08 Admit Provider: Yolis Iglesias Attending Provider: Yolis Iglesias Primary Care Provider: Reena Barrett Home Meds and New Rx's Prescriptions: No Action cholecalciferol (vitamin D3) 25 mcg (1,000 unit) capsule 25 mcg PO DAILY DHA 200 mg capsule PO aspirin 81 mg tablet,delayed release (DR/EC) 162 mg PO DAILY Qty: 30 3RF ascorbate calcium (vitamin C) 500 mg tablet 500 mg PO DAILY Discharge Instructions Additional Instructions: Return 10/31/to drop off 24 hr urine collection and have BP check Activity:: Activity as Tolerated Equipment/Supplies:: No Equipment Needed Diet:: Normal Diet Discharge Orders Discharge Orders: Discharge Order (Routine); Ordered 10/30/24 Ordered By: Yolis Iglesias OB:DS Summary Contraception Discussed Contraception Discussed: No, Status at Discharge Functional status at discharge: independent ambulation Overall status at discharge: patient is back to baseline Mental Status: mental status grossly normal Speech and Movement: speech and movement normal and speech clear Mood: congruent mood Affect: normal affect Quality:SDOH Health Related Social Needs: No Data to Display Exam Physical Exam Vital signs: Temp Pulse Resp BP Pulse Ox 98.1 F 76 16 140/76 96 10/29/24 23:22 10/29/24 23:41 10/29/24 23:22 10/29/24 23:41 10/29/24 23:22 Constitutional Constitutional: no acute distress and cooperative HEENT Exam HEENT Exam: Normal Neck Exam Neck Exam: Normal Respiratory Exam Respiratory Exam: Normal Cardiovascular Exam Cardiovascular Exam: Normal Rectal Exam Rectal Exam: Normal Back/Spine/Pelvis Exam Back Exam: Normal Skin Exam Skin Exam: Normal Neurological Exam Neurological Exam: Normal Psychiatric Exam Psychiatric Exam: Normal PFSH All Active Problems (Updated 10/29/24 @ 23:20 by Yolis Iglesias) Gestational hypertension affecting second (Acute) Essential hypertension (Acute) History of pre-eclampsia in prior , currently in second trimester (Acute) (Acute) Medical History (Updated 10/29/24 @ 23:20 by Yolis Iglesias) Pre-eclampsia in period Managed with PO meds x6wks At risk for ineffective difficulty with first baby Family history of cystic fibrosis Left wrist fracture Surgical History H/O wrist surgery Family History (Updated 10/01/24 @ 15:56 by Cherelle Gentile CNM) Mother Cancer ANAL CANCER, has a colostomy, diagnosed age 55. Maternal Grandmother No problems noted. Maternal Grandfather No problems noted. Father Alcohol use disorder Hypertension Paternal Grandmother No problems noted. Paternal Grandfather Alcohol use disorder Brother Cystic fibrosis carrier Brother No problems noted. Sister No problems noted. Maternal Aunt Diabetes Maternal Aunt Diabetes Maternal Cousin Cystic fibrosis Social History Smoking/Tobacco Use Status: Never Smoking risk assessment performed?: Yes Alcohol Intake: former Drug use: Never Substance use type: does not use Household members: significant other Sexually active: Yes Do you think of yourself as: straight/heterosexual Current gender identity: female Do you feel safe at home: Yes Do you feel safe in your relationship?: Yes Female Reproductive History Menstrual control method: none History History 2 Para 1 Hx # Term Pregnancies 1 Multiple births 0 Hx # Pregnancies 0 Ectopic pregnancies 0 AB induced 0 Hx Number of Living Children 1 AB spontaneous 0 Past Pregnancies Del. Date GA/Weeks # Preg Succ Route Wgt Sex Labor Lgth Anesth esia Location [facility] 10/20/22 40 No Yes vaginal 7 lb 4.93 oz Male 16 [facility] [place] Delivery Date: 10/20/22 Last Updated by: Cherelle Gentile CNM Spontaneous labor. Long second stage, Pre-eclampsia, apgars 4/9, GBS pos. Difficult due to poor latch DS: Data Vitals/I&O Vitals and I&O: Vital Signs Temperature 98.1 F 10/29/24 23:22 Pulse 76 10/29/24 23:41 Respiratory Rate 16 10/29/24 23:22 Blood Pressure 140/76 10/29/24 23:41 Blood Pressure Mean 101 10/29/24 23:22 Pulse Oximetry 96 10/29/24 23:22 Oxygen Delivery Method Room Air 05/22/25 23:13 Oxygen Flow Rate 0 10/29/24 23:13 Intake & Output 10/29/24 10/29/24 10/30/24 11:59 23:59 11:59 Weight 220 lb Other: Urine Color Pale
== END 2024-10-30 00:05 | disposition home or self-care (01) ==
PROVIDERS: Admitting Provider Advanced Practice Midwife; PCP Family Medicine; Visit Provider Advanced Practice Midwife
DX: O13.3 Gestational [pregnancy-induced] hypertension without significant proteinuria, third trimester (principal); Z3A.38 38 weeks gestation of pregnancy; R51.9 Headache, unspecified
CPT/HCPCS: 59025; G0378

== ENCOUNTER 2024-10-31 12:48 | Inpatient (IN) | payer OTHER, SELFPAY ==
[2024-10-31] VITALS (12 sets, daily range): BP systolic 99–153; BP diastolic 66–85; PULSE 68–92; RESP 16; TEMP 36.6–36.8; O2SAT 99
[2024-10-31 11:37] LABS: PROTEIN 6.9 mg/dL (0.0-11.9)
[2024-10-31 11:49] LABS: TOTAL PROTEIN,URINE TIMED 282.9 mg/24hr (0.0-149.1); Total Volume 4100 ml
[2024-10-31 12:10] LABS: HCT 37.1 % (36.0-46.0); HGB 12.6 g/dL (11.2-15.7); MCH 29.9 pg (27.0-33.0); MCV 88 fL (80-95); MPV 9.9 fL (8.0-11.0); Platelet Count 234 10^3/uL (130-400); RBC 4.22 10^6/uL (3.93-5.22); RDW 12.6 % (11.7-14.6); RDW-SD 40.6 fL; WBC 10.32 10^3/uL (4.4-10.8)
[2024-10-31 12:35] LABS: ALT 13 U/L (14-59); AST 20 U/L (15-37); Albumin 2.9 g/dL (3.4-5.0); Alkaline Phosphatase 143 U/L (46-116); Anion Gap 7.9 mmol/L (3-11); BUN 7 mg/dL (7-18); Bilirubin, Total 0.2 mg/dL (0.2-1.0); CO2 24.1 mmol/L (21.0-32.0); CREATININE 0.5 mg/dL (0.55-1.02); Chloride 103 mmol/L (98-107); Estimated GFR 127.72 (mL/min/1.73m2); Glucose 78 mg/dL (74-106); Potassium 3.9 mmol/L (3.5-5.1); Sodium 135 mmol/L (136-145); Total Protein 6.7 g/dL (6.4-8.2)
[2024-10-31 12:46] LABS: Uric Acid 3.9 mg/dL (2.6-6.0)
--- NOTE | 2024-10-31 15:00 | HPE_ITS ---
Date of service: 10/31/24 Time of Service: 15:00 Assessment and Plan Assessment and plan (1) Gestational hypertension affecting second : Status: Acute Assessment and plan: normal preeclampsia labs (2) Encounter for induction of labor: Status: Acute Assessment and plan: Reviewed induction methods. Due to staffing on the Center, will proceed with cerivcal ripening balloon. Consider misoprostol when staffing allows. Anticipate . Comfort measures. GBS neg. [place] requested repeat GBS swab due to pos. GBS with previous . Plan reviewed with Dr Mckee who agrees. OB-HPI Labor/Delivery History of Present Illness Reason for Visit: Induction of labor Chief Complaint: Signs/Symptoms Gestational HTN (hypertension) , Associated Signs and Symptoms of GestationalHTN: elevated protein creatinene ratio. TORSTEN Calculator Estimated Delivery Date Method Current WG Current Estimate 11/12/24 LMP (Certain) 38w 2d Comments: 24-hour urine 282 History of Present Expected Delivery Route/Plan - CNM FOB/ - Faisal Garrido (his first child) Will learn of gender at , if male will circ Desires epidural after using tub and nitrous GBS negative Specific Issues/Plan 1. H/o immediate pp PEC in prior , some mildly elevated BPs this , initial CMP=nml, P:Cr 0.07 - Recommend ASA at 12-16wks - Will start checking BPs at home and if consistently elevated may need to start medication. 2. Family hx CF Carriers: brother & maternal cousin, pt is SMA/CF neg, 3. CfDNA low risk, AFP neg 4. 5-Ps neg 5. Declines IBCLC inpatient support , would like CNM help with first latch and ongoing support Assessment: History Reviewed & Current Informed Consent Informed Consent: Induction of Labor (cervical ripening methods) PFSH All Active Problems (Updated 10/31/24 @ 15:04 by Cherelle Gentile CNM) Encounter for induction of labor (Acute) Gestational hypertension affecting second (Acute) Essential hypertension (Acute) History of pre-eclampsia in prior , currently in second trimester (Acute) (Acute) Medical History (Updated 10/31/24 @ 15:04 by Cherelle Getnile CNM) Pre-eclampsia in period Managed with PO meds x6wks At risk for ineffective difficulty with first baby Family history of cystic fibrosis Left wrist fracture Surgical History H/O wrist surgery Family History (Updated 10/01/24 @ 15:56 by Cherelle Gentile CNM) Mother Cancer ANAL CANCER, has a colostomy, diagnosed age 55. Maternal Grandmother No problems noted. Maternal Grandfather No problems noted. Father Alcohol use disorder Hypertension Paternal Grandmother No problems noted. Paternal Grandfather Alcohol use disorder Brother Cystic fibrosis carrier Brother No problems noted. Sister No problems noted. Maternal Aunt Diabetes Maternal Aunt Diabetes Maternal Cousin Cystic fibrosis Social History Smoking/Tobacco Use Status: Never Smoking risk assessment performed?: Yes Alcohol Intake: former Drug use: Never Substance use type: does not use Household members: significant other Sexually active: Yes Do you think of yourself as: straight/heterosexual Current gender identity: female Do you feel safe at home: Yes Do you feel safe in your relationship?: Yes Female Reproductive History Menstrual control method: none History History 2 Para 1 Hx # Term Pregnancies 1 Multiple births 0 Hx # Pregnancies 0 Ectopic pregnancies 0 AB induced 0 Hx Number of Living Children 1 AB spontaneous 0 Past Pregnancies Del. Date GA/Weeks # Preg Succ Route Wgt Sex Labor Lgth Anesth esia Location [facility] 10/20/22 40 No Yes vaginal 7 lb 4.93 oz Male 16 [facility] [place] [place] Delivery Date: 10/20/22 Last Updated by: Cherelle Gentile CNM Spontaneous labor. Long second stage, Pre-eclampsia, apgars 4/9, GBS pos. Difficult due to poor latch Meds Allergies and Home Medications Allergies Allergy/AdvReac Type Severity Reaction Status Date / Time amoxicillin Allergy Hives Verified 10/29/24 15:23 Home Medications ?Medication ?Instructions ?Recorded ?Confirmed ?Type cholecalciferol (vitamin D3) 25 25 mcg PO DAILY 03/07/22 10/29/24 History mcg (1,000 unit) capsule ascorbate calcium (vitamin C) 500 500 mg PO DAILY 08/06/22 10/29/24 History mg tablet docosahexaenoic acid 200 mg mg PO 04/07/24 10/29/24 History capsule ( DHA) aspirin 81 mg tablet,delayed 162 mg (2 x 81 mg) PO DAILY #30 09/18/24 10/29/24 Rx release tabs Exam Physical Exam Vital signs: Pulse BP 68 143/80 H 10/31/24 12:26 10/31/24 12:26 Vital Signs Reviewed: Yes Constitutional Constitutional: no acute distress Detailed Labor and Delivery Exam Dilation: 1 Effacement (%): 50 station: -2 Cervix position: mid Consistency: soft Felix Score: Cervical Points Exam 0 1 2 3 Dilation Closed 1-2cm 3-4 cm 5-6cm Effacement 0-30% 40-50% 60-70% 80% Consistency Firm Medium Soft Station -3 -2 -1,0 +1,+2 Position Posterior Mid Anterior FELIX Score(Cervical Ripeness Score): 6 Amniotic Membrane Status: Intact Monitor Mode: External Contraction Frequency(min): occasional Contraction Intensity: Mild Fetus A Heart Rate Baseline: 140 Monitor Accelerations: 15 X 15 Monitor Decelerations: None Variability: Moderate (6-25 BPM) Presentation: Cephalic Categories: Category I HEENT Exam HEENT Exam: Normal Respiratory Exam Respiratory Exam: Normal Cardiovascular Exam Cardiovascular Exam: Normal Abdominal Exam Abdominal Exam: Normal Exam Exam: Normal Extremities Exam Extremities Exam: Normal Skin Exam Skin Exam: Normal Psychiatric Exam Psychiatric Exam: Normal Results Abnormal Lab Findings: Abnormal Labs 10/31/24 10/31/24 08:00 12:05 Sodium 135 L Creatinine 0.5 L ALT 13 L Alkaline Phosphatase 143 H Albumin 2.9 L Ur Total Protein 24 Hr 282.9 H Risk Assessment Risk for Shoulder Dystocia Historical/Initial OB: NEGATIVE FOR: Pelvic Abnormality, Pre- BMI>30, Previous Shoulder Dystocia or Previous Macrosomia 36 Weeks: NEGATIVE FOR: Current Gestational DM, EFW>4500gms or Maternal Weight Gain>40lbs 40 Weeks: NEGATIVE FOR: EFW> 4500 gms, Maternal Weight Gain >40lb or Post Dates Risk for Pre-Eclampsia Date Initiated/Initials: KM 05/18/24 Yes, if one or more: POSTIVE FOR: Hx Pre-E/Gest HTN; NEGATIVE FOR: Chronic HTN, Multiple Gestation, Pre-gestational DM, Renal Disease, Systemic Lupus or APA Syndrome Yes, if 2 or more: NEGATIVE FOR: Nulliparity, Age>= 35 yrs, >10yr btwn pregnancies, BMI>30, ethinicty, Mother/Sister w/ Pre-E or Previous IUGR Risk for Post- Hemorrhage Initial: NEGATIVE FOR: Multiple Gestation, Previous PPH, Known Clotting Deficiency, Grand Multiparity or Anticoagulation 36 Weeks: NEGATIVE FOR: Anemia, hgb<10, Low platelets(thrombocytopenia), Gestational HTN or Pre-E, Polyhydraminios or EFW>4500gms 40 Weeks: POSITIVE FOR: Gestation HTN or Pre-E; NEGATIVE FOR: Anemia, hgb<10, Low platelets (thrombocytopenia), Polyhydraminios or EFW>4500gms Counseled re: Active Management: Yes Risks Reviewed Risks Reviewed Upon Admission: Yes
--- NOTE | 2024-10-31 17:58 | W.PM.OBNL1 ---
Date of service: 10/31/24 Time of Service: 17:58 Informed Consent Informed Consent: Induction of Labor (cervical ripening methods) Pelvic Exam Dilation: 2 Effacement (%): 50 station: -2 Cervix Position: posterior Consistency: soft Vaginal Exam Presentation: Cephalic Contractions Monitor Mode: External Contraction Frequency(min): occasional Intensity: Mild Fetus A Monitor: External (US) Heart Rate Baseline: 130 Variability: Moderate (6-25 BPM) Categories: Category I Accelerations: 15 X 15 Decelerations: None Assessment Note: The cramping stopped after the balloon was passed and [place] is comfortable Assessment and Plan Assessment and plan (1) Encounter for induction of labor: Status: Acute Assessment and plan: Will start misoprostol for cervical ripening at this time and anticipate Objective Abnormal lab results 10/31/24 10/31/24 Range/Units 08:00 12:05 Sodium 135 L (136-145) mmol/L Creatinine 0.5 L (0.55-1.02) mg/dL ALT 13 L (14-59) U/L Alkaline Phosphatase 143 H (46-116) U/L Albumin 2.9 L (3.4-5.0) g/dL Ur Total Protein 24 Hr 282.9 H (0.0-149.1) mg/24hr Temp Pulse Resp BP Pulse Ox 97.9 F 78 16 99/67 L 99 10/31/24 17:02 10/31/24 17:02 10/31/24 17:02 10/31/24 17:02 10/31/24 17:02 Laboratory Results WBC 10.32 10^3/uL (4.4-10.8) 10/31/24 12:05 RBC 4.22 10^6/uL (3.93-5.22) 10/31/24 12:05 Hgb 12.6 g/dL (11.2-15.7) 10/31/24 12:05 Hct 37.1 % (36.0-46.0) 10/31/24 12:05 MCV 88 fL (80-95) 10/31/24 12:05 MCH 29.9 pg (27.0-33.0) 10/31/24 12:05 MCHC 34.0 % (32.0-36.0) 10/31/24 12:05 RDW 12.6 % (11.7-14.6) 10/31/24 12:05 Plt Count 234 10^3/uL (130-400) 10/31/24 12:05 MPV 9.9 fL (8.0-11.0) 10/31/24 12:05 Sodium 135 mmol/L (136-145) L 10/31/24 12:05 Potassium 3.9 mmol/L (3.5-5.1) 10/31/24 12:05 Chloride 103 mmol/L (98-107) 10/31/24 12:05 Carbon Dioxide 24.1 mmol/L (21.0-32.0) 10/31/24 12:05 Anion Gap 7.9 mmol/L (3-11) 10/31/24 12:05 BUN 7 mg/dL (7-18) 10/31/24 12:05 Creatinine 0.5 mg/dL (0.55-1.02) L 10/31/24 12:05 Est GFR (CKD-EPI 2020) 127.72 (mL/min/1.73m2) 10/31/24 12:05 Glucose 78 mg/dL (74-106) 10/31/24 12:05 Uric Acid 3.9 mg/dL (2.6-6.0) 10/31/24 12:05 Uric Acid Cancelled 10/31/24 12:05 Calcium 9.0 mg/dL (8.5-10.1) 10/31/24 12:05 Total Bilirubin 0.2 mg/dL (0.2-1.0) 10/31/24 12:05 AST 20 U/L (15-37) 10/31/24 12:05 ALT 13 U/L (14-59) L 10/31/24 12:05 Alkaline Phosphatase 143 U/L (46-116) H 10/31/24 12:05 Total Protein 6.7 g/dL (6.4-8.2) 10/31/24 12:05 Albumin 2.9 g/dL (3.4-5.0) L 10/31/24 12:05 U Random Total Protein 6.9 mg/dL (0.0-11.9) 10/31/24 08:00 Urine Total Volume 4100 ml 10/31/24 08:00 Ur Total Protein 24 Hr 282.9 mg/24hr (0.0-149.1) H 10/31/24 08:00 Subjective Patient Reports: New Complaints Interval history since last seen: [place] experienced cramping and the cervical ripening balloon passed in the bathroom. Results Hemoglobin/Hematocrit: Hgb 12.6 g/dL (11.2-15.7) 10/31/24 12:05 Hct 37.1 % (36.0-46.0) 10/31/24 12:05 Abnormal Lab Findings: Abnormal Labs 10/31/24 10/31/24 08:00 12:05 Sodium 135 L Creatinine 0.5 L ALT 13 L Alkaline Phosphatase 143 H Albumin 2.9 L Ur Total Protein 24 Hr 282.9 H
[2024-10-31] MEDS: miSOPROStol 25 MCG TAB PO ×2 (18:45→22:53)
[2024-10-31] MEDS: Acetaminophen 500 MG TAB 1000 MG PO (22:01)
[2024-10-31] MEDS: Zolpidem 5 MG TAB 10 MG PO (22:52)
[2024-11-01] VITALS (43 sets, daily range): BP systolic 108–158; BP diastolic 53–88; PULSE 62–98; RESP 16; TEMP 36.9; O2SAT 98; BMI 31.8
[2024-11-01] MEDS: miSOPROStol 25 MCG TAB PO (02:52)
--- NOTE | 2024-11-01 07:28 | W.PM.OBNL1 ---
Date of service: 11/01/24 Time of Service: 07:28 Informed Consent Informed Consent: Induction of Labor (cervical ripening methods) Pelvic Exam Dilation: 2 Effacement (%): 50 station: -2 Cervix Position: posterior Consistency: soft Vaginal Exam Presentation: Cephalic Contractions Monitor Mode: External Contraction Frequency(min): irregular Contraction Duration(sec): 40-60 Intensity: Moderate Fetus A Monitor: External (US) Heart Rate Baseline: 130 Presentation: Cephalic Variability: Moderate (6-25 BPM) Categories: Category I FHR Rhythm: Regular Accelerations: 15 X 15 Decelerations: None Assessment and Plan Assessment and plan (1) Encounter for induction of labor: Status: Acute Assessment and plan: Will administer misoprostol 50 mcg now. Anticipate . Elle Harris HAYNES will be assuming her care at 0800. Objective Abnormal lab results 10/31/24 10/31/24 Range/Units 08:00 12:05 Sodium 135 L (136-145) mmol/L Creatinine 0.5 L (0.55-1.02) mg/dL ALT 13 L (14-59) U/L Alkaline Phosphatase 143 H (46-116) U/L Albumin 2.9 L (3.4-5.0) g/dL Ur Total Protein 24 Hr 282.9 H (0.0-149.1) mg/24hr Temp Pulse Resp BP Pulse Ox 97.9 F 85 16 129/70 99 10/31/24 17:02 11/01/24 05:02 10/31/24 17:02 11/01/24 05:02 10/31/24 17:02 Laboratory Results WBC 10.32 10^3/uL (4.4-10.8) 10/31/24 12:05 RBC 4.22 10^6/uL (3.93-5.22) 10/31/24 12:05 Hgb 12.6 g/dL (11.2-15.7) 10/31/24 12:05 Hct 37.1 % (36.0-46.0) 10/31/24 12:05 MCV 88 fL (80-95) 10/31/24 12:05 MCH 29.9 pg (27.0-33.0) 10/31/24 12:05 MCHC 34.0 % (32.0-36.0) 10/31/24 12:05 RDW 12.6 % (11.7-14.6) 10/31/24 12:05 Plt Count 234 10^3/uL (130-400) 10/31/24 12:05 MPV 9.9 fL (8.0-11.0) 10/31/24 12:05 Sodium 135 mmol/L (136-145) L 10/31/24 12:05 Potassium 3.9 mmol/L (3.5-5.1) 10/31/24 12:05 Chloride 103 mmol/L (98-107) 10/31/24 12:05 Carbon Dioxide 24.1 mmol/L (21.0-32.0) 10/31/24 12:05 Anion Gap 7.9 mmol/L (3-11) 10/31/24 12:05 BUN 7 mg/dL (7-18) 10/31/24 12:05 Creatinine 0.5 mg/dL (0.55-1.02) L 10/31/24 12:05 Est GFR (CKD-EPI 2020) 127.72 (mL/min/1.73m2) 10/31/24 12:05 Glucose 78 mg/dL (74-106) 10/31/24 12:05 Uric Acid 3.9 mg/dL (2.6-6.0) 10/31/24 12:05 Uric Acid Cancelled 10/31/24 12:05 Calcium 9.0 mg/dL (8.5-10.1) 10/31/24 12:05 Total Bilirubin 0.2 mg/dL (0.2-1.0) 10/31/24 12:05 AST 20 U/L (15-37) 10/31/24 12:05 ALT 13 U/L (14-59) L 10/31/24 12:05 Alkaline Phosphatase 143 U/L (46-116) H 10/31/24 12:05 Total Protein 6.7 g/dL (6.4-8.2) 10/31/24 12:05 Albumin 2.9 g/dL (3.4-5.0) L 10/31/24 12:05 U Random Total Protein 6.9 mg/dL (0.0-11.9) 10/31/24 08:00 Urine Total Volume 4100 ml 10/31/24 08:00 Ur Total Protein 24 Hr 282.9 mg/24hr (0.0-149.1) H 10/31/24 08:00 ABO/Rh O Positive 10/31/24 17:58 Antibody Screen NEGATIVE 10/31/24 17:58 Subjective Patient Reports: No new Complaints Interval history since last seen: [place] has slept and is resting comfortably. She complained of a back ache earlier. BP 129/70 Results Hemoglobin/Hematocrit: Hgb 12.6 g/dL (11.2-15.7) 10/31/24 12:05 Hct 37.1 % (36.0-46.0) 10/31/24 12:05 Abnormal Lab Findings: Abnormal Labs 10/31/24 10/31/24 08:00 12:05 Sodium 135 L Creatinine 0.5 L ALT 13 L Alkaline Phosphatase 143 H Albumin 2.9 L Ur Total Protein 24 Hr 282.9 H
[2024-11-01] MEDS: miSOPROStol 50 MCG TAB PO (07:55)
--- NOTE | 2024-11-01 11:00 | ANES.PREOP_ITS ---
General Info Date of Service Date Performed: 11/01/24 Height: 5 ft 10 in Weight: 100.698 kg Body Mass Index (BMI): 31.8 Meds Allergies and Home Medications Allergies Allergy/AdvReac Type Severity Reaction Status Date / Time amoxicillin Allergy Hives Verified 10/29/24 15:23 Home Medication ?Medication ?Instructions ?Recorded cholecalciferol (vitamin D3) 25 25 mcg PO DAILY 03/07/22 mcg (1,000 unit) capsule ascorbate calcium (vitamin C) 500 500 mg PO DAILY 08/06/22 mg tablet docosahexaenoic acid 200 mg 200 mg PO DAILY 04/07/24 capsule ( DHA) aspirin 81 mg tablet,delayed 162 mg (2 x 81 mg) PO DAILY #30 09/18/24 release tabs Current Visit Medications: Current Medications Generic Name Dose Route Start Last Admin Trade Name Freq PRN Reason Stop Dose Admin Acetaminophen 1,000 mg 10/31/24 21:55 10/31/24 22:01 Acetaminophen 500 Mg Tab PO 1,000 mg Q6H PRN PRN Administration Ringer's Solution 1,000 mls @ 125 mls/hr 11/01/24 06:00 IV INFUSION LOUIE Ringer's Solution 1,000 mls @ 200 mls/hr 10/31/24 17:45 IV INFUSION LOUIE IV Miscellaneous Supplies 1 each 10/31/24 13:00 Iv Access IV DIRECTED LOUIE Misoprostol 25 mcg 10/31/24 18:00 11/01/24 02:52 Misoprostol 25 Mcg Tab PO 25 mcg Q4H LOUIE Administration Sodium Chloride 0 ml 10/31/24 12:47 Normal Saline Flush 10 Ml Syr IVP PRN PRN Sodium Chloride 0 ml 10/31/24 12:47 Normal Saline Flush 10 Ml Syr IVP PRN PRN Sodium Chloride 0 ml 10/31/24 20:00 Normal Saline Flush 10 Ml Syr IVP BID LOUIE Sodium Chloride 0 ml 10/31/24 12:47 Normal Saline 10 Ml Vial IJ DIRECTED PRN Sodium Chloride 0 ml 10/31/24 17:39 Normal Saline Flush 10 Ml Syr IVP PRN PRN Sodium Chloride 0 ml 10/31/24 20:00 Normal Saline Flush 10 Ml Syr IVP BID LOUIE Sodium Chloride 0 ml 10/31/24 17:39 Normal Saline 10 Ml Vial IJ DIRECTED PRN Terbutaline Sulfate 0.25 mg 10/31/24 17:39 Terbutaline 1 Mg/Ml Vial SC PRN PRN PFSH Active Problems Active Problems: Problem Status Onset Code Encounter for induction of labor Acute Z34.90 Gestational hypertension affecting second Acute O13.9 Essential hypertension Acute I10 History of pre-eclampsia in prior , currently in second trimester Acute O09.292 Acute Z34.90 Medical History Medical History (Updated 10/31/24 @ 15:04 by Cherelle Gentile CNM) Pre-eclampsia in period Managed with PO meds x6wks At risk for ineffective difficulty with first baby Family history of cystic fibrosis Left wrist fracture Surgical History Surgical History H/O wrist surgery Tobacco Smoking/Tobacco Use Status: Never Passive smoking exposure: No Alcohol Alcohol Intake: former Substance Use Substance use: Never Substance use type: does not use Prental History History 2 2 Para 1 Hx # Term Pregnancies 1 Multiple births 0 Hx # Pregnancies 0 Ectopic pregnancies 0 AB induced 0 Hx Number of Living Children 1 AB spontaneous 0 Past Pregnancies Del. Date GA/Weeks # Preg Succ Route Wgt Sex Labor Lgth Anesth esia Location Prov Complic 10/20/22 40 No Yes vaginal 3314.91 g Male 16 regional Lalo Iglesias CNM/MD Karla Delivery Date: 10/20/22 Last Updated by: Cherelle Gentile CNM Spontaneous labor. Long second stage, Pre-eclampsia, apgars 4/9, GBS pos. Difficult due to poor latch Vital Signs and Lab Results Vital Signs Most Recent Vital Signs in EMR: Most Recent Vital Signs Temp Pulse Resp BP Pulse Ox 36.9 C 85 16 134/77 99 11/01/24 07:43 11/01/24 09:59 11/01/24 07:43 11/01/24 09:59 10/31/24 17:02 Lab Results 10/31/24 12:05 10/31/24 12:05 Blood Type / Crossmatch: 2 Antibody Screen NEGATIVE 10/31/24 Complete Blood Count: 2 White Blood Count 10.32 10^3/uL (4.4-10.8) 10/31/24 12:05 Red Blood Count 4.22 10^6/uL (3.93-5.22) 10/31/24 12:05 Hemoglobin 12.6 g/dL (11.2-15.7) 10/31/24 12:05 Hematocrit 37.1 % (36.0-46.0) 10/31/24 12:05 Platelet Count 234 10^3/uL (130-400) 10/31/24 12:05 Complete Metabolic Panel: 2 Sodium 135 mmol/L (136-145) L 10/31/24 12:05 Potassium 3.9 mmol/L (3.5-5.1) 10/31/24 12:05 Chloride 103 mmol/L (98-107) 10/31/24 12:05 Carbon Dioxide 24.1 mmol/L (21.0-32.0) 10/31/24 12:05 BUN 7 mg/dL (7-18) 10/31/24 12:05 Creatinine 0.5 mg/dL (0.55-1.02) L 10/31/24 12:05 Est GFR (CKD-EPI 2020) 127.72 (mL/min/1.73m2) 10/31/24 12:05 Calcium 9.0 mg/dL (8.5-10.1) 10/31/24 12:05 Albumin 2.9 g/dL (3.4-5.0) L 10/31/24 12:05 Glucose 78 mg/dL (74-106) 10/31/24 12:05 Liver Function Panel: 2 Alanine Aminotransferase (ALT/SGPT) 13 U/L (14-59) L 10/31/24 1 2:05 Aspartate Amino Transf (AST/SGOT) 20 U/L (15-37) 10/31/24 12:05 Coagulation Panel: 2 No Data to Display Cardiac Panel: 2 No Data to Display Arterial Blood Gas: 2 No Data to Display Venous Blood Gas: 2 No Data to Display Pancreas Panel: 2 No Data to Display Thyroid Panel: 2 No Data to Display Infectious Disease: 2 No Data to Display Blood Cultures: 2 No Data to Display Toxicology Panel: 2 No Data to Display Panel: 2 No Data to Display Anesthesia Assessment and Plan Anesthesia History Personal History: No History of General Anesthesia Family History: No Family History of Anesthesia Complications Exercise Tolerance Exercise Tolerance: Metabolic Equivalents>4 Pertinent Negatives Pertinent Negatives: No Major Cardiovascular Symptoms or Complaints and No Major Pulmonary Symptoms or Complaints Cardiac & Pulmonary Exam Cardiac Exam: Normal S1/S2 Heart Sounds Pulmonary Exam: Clear Bilateral Breath Sounds Implantable Cardiac Device Does patient have a Pacemaker or an ICD?: No Airway Exam Known Difficult Airway: No Mallampati Class: 2 Mouth Opening: Normal (> 3cm) Thyromental Distance: Greater than 3 cm Neck Range of Motion: Full ROM Neck Circumference: Normal Teeth Condition: Normal Dentition ASA Classification ASA Score: ASA 2 Emergency Case?: No NPO Status NPO Status: Full Stomach Status Status: Confirmed Anesthesia Plan Resuscitation Status: Full Code Anesthesia Technique: Epidural Anesthesia Airway Planned: Natural Airway Monitors Used: Standard Monitors
--- NOTE | 2024-11-01 11:57 | W.PM.OBNL1 ---
Date of service: 11/01/24 Time of Service: 11:57 Informed Consent Informed Consent: Augmentation of Labor and Risk,Benefits,Alternatives Discussed Pelvic Exam Dilation: 5 Effacement (%): 60 station: -2 Cervix Position: posterior Consistency: soft Contractions Monitor Mode: Palpation Contraction Frequency(min): irreg Intensity: Mild Fetus A Monitor: Doppler Heart Rate Baseline: 140 FHR Rhythm: Regular Characteristics: Normal Amniotic Membrane Status: Intact Assessment and Plan Assessment and plan (1) Encounter for induction of labor: Status: Acute Assessment and plan: A: 33 yo @ 38+3 wks IOL via cervical ripening for gHTN without severe features Cervical ripening complete after arceo balloon and 4 doses misoprostel P: Will begin pitocin augmentation, Pt plans epidural anesthesia Anticipate , Dr. Mckee consulting prn (2) Gestational hypertension affecting second : Status: Acute Objective Abnormal lab results 10/31/24 Range/Units 12:05 Sodium 135 L (136-145) mmol/L Creatinine 0.5 L (0.55-1.02) mg/dL ALT 13 L (14-59) U/L Alkaline Phosphatase 143 H (46-116) U/L Albumin 2.9 L (3.4-5.0) g/dL Temp Pulse Resp BP Pulse Ox 98.4 F 85 16 134/77 99 11/01/24 07:43 11/01/24 09:59 11/01/24 07:43 11/01/24 09:59 10/31/24 17:02 Laboratory Results WBC 10.32 10^3/uL (4.4-10.8) 10/31/24 12:05 RBC 4.22 10^6/uL (3.93-5.22) 10/31/24 12:05 Hgb 12.6 g/dL (11.2-15.7) 10/31/24 12:05 Hct 37.1 % (36.0-46.0) 10/31/24 12:05 MCV 88 fL (80-95) 10/31/24 12:05 MCH 29.9 pg (27.0-33.0) 10/31/24 12:05 MCHC 34.0 % (32.0-36.0) 10/31/24 12:05 RDW 12.6 % (11.7-14.6) 10/31/24 12:05 Plt Count 234 10^3/uL (130-400) 10/31/24 12:05 MPV 9.9 fL (8.0-11.0) 10/31/24 12:05 Sodium 135 mmol/L (136-145) L 10/31/24 12:05 Potassium 3.9 mmol/L (3.5-5.1) 10/31/24 12:05 Chloride 103 mmol/L (98-107) 10/31/24 12:05 Carbon Dioxide 24.1 mmol/L (21.0-32.0) 10/31/24 12:05 Anion Gap 7.9 mmol/L (3-11) 10/31/24 12:05 BUN 7 mg/dL (7-18) 10/31/24 12:05 Creatinine 0.5 mg/dL (0.55-1.02) L 10/31/24 12:05 Est GFR (CKD-EPI 2020) 127.72 (mL/min/1.73m2) 10/31/24 12:05 Glucose 78 mg/dL (74-106) 10/31/24 12:05 Uric Acid 3.9 mg/dL (2.6-6.0) 10/31/24 12:05 Uric Acid Cancelled 10/31/24 12:05 Calcium 9.0 mg/dL (8.5-10.1) 10/31/24 12:05 Total Bilirubin 0.2 mg/dL (0.2-1.0) 10/31/24 12:05 AST 20 U/L (15-37) 10/31/24 12:05 ALT 13 U/L (14-59) L 10/31/24 12:05 Alkaline Phosphatase 143 U/L (46-116) H 10/31/24 12:05 Total Protein 6.7 g/dL (6.4-8.2) 10/31/24 12:05 Albumin 2.9 g/dL (3.4-5.0) L 10/31/24 12:05 U Random Total Protein 6.9 mg/dL (0.0-11.9) 10/31/24 08:00 Urine Total Volume 4100 ml 10/31/24 08:00 Ur Total Protein 24 Hr 282.9 mg/24hr (0.0-149.1) H 10/31/24 08:00 ABO/Rh O Positive 10/31/24 17:58 Antibody Screen NEGATIVE 10/31/24 17:58 Vital Signs Reviewed: Yes Notable Details: intermittent mild range pressures noted Objective Narrative Objective Narrative: Pt sitting on physio ball, in good spirits, comfortable, eager to get into labor.
[2024-11-01] MEDS: Oxytocin/Normal Saline 30 UNIT/500 ML BAG 2 UNITS IV (12:33)
[2024-11-01] MEDS: Lactated Ringers 1,000 ML 125 ML IV (12:35)
[2024-11-01] MEDS: FentaNYL/ROPIvacaine 2 mcg/ml and 0.1% 200 ML CADD Cassette EP (13:59)
--- NOTE | 2024-11-01 14:38 | W.ANESNEU ---
Epidural/Spinal Catheter Date Performed: 11/01/24 Procedure Start: 14:12 Procedure Stop: 14:34 Requesting Provider: Yolis Iglesias Procedure Location: Obstetrics Reason Performed: Labor Epidural Standard Monitors Applied: ECG, Blood Pressure, SpO2 and See EMR for corresponding vital signs Patient Position: Sitting Sedation Given (Indicate Dose Given): No Sedation given Patient Mental Status: Awake Sterility: Hand Hygiene, Surgical Cap, Surgical Mask, Sterile Gloves, Sterile Drape/Sheet and Chlorhexidine Procedure Location: L2-L3 Interspace Epidural Needle: Tuohy 18 Gauge Needle Length: 3.5 Inch Needle Approach: Midline Epidural Procedure: Skin Prepped, Sterile Drape Placed, 1% Lidocaine to skin and subcutaneous tissue with 25G needle, Tuohy Needle placed, REBECCA to Saline Used, Epidural Catheter Placed, Negative Heme, Negative CSF Flow and Tuohy Needle Removed Catheter Placed?: Catheter Placed Test Dose (Indicate Dose Given): 3ml 1.5% Lidocaine with 1:200K Epinephrine Given Loss of Resistance Depth (cm): 8 Catheter depth at skin (cm): 14 Dressing: Sorbaview Dressing Placed, Mastisol Used and Dressing reinforced with Tape Epidural Provider Bolus (Indicate Dose Given): Total bolus dose given in 3-5 ml divided doses and Total Ropivacaine 0.1% with Fentanyl 2mcg/ml Given from pump. (ml) Dose:: 5mL Additives (Indicate Dose Given ): None Infusion Medication: Medication Infusion Began Medication Infusion: Ropivacaine 0.1% with Fentanyl 2mcg/ml Maintenance Infusion Rate (ml/hour): 12 PCEA Bolus Dose (ml): 5 Block Level: N/A Paresthesia: None Ultrasound: Not Used Number of Attempts (See previous attempts in note section): 2 Procedure Tolerated: No Complications and Patient tolerated well Procedure Outcome: Successful Procedure Comment:: First attempt L3/L4 positive for heme with touhy needle, removed. Moved up interspace to L2/L3, tolerated well. Performed By: Rosy Roman
--- NOTE | 2024-11-01 15:26 | W.PM.OBNL1 ---
Date of service: 11/01/24 Time of Service: 15:26 Informed Consent Informed Consent: Augmentation of Labor, Regional Anesthesia and Risk,Benefits,Alternatives Discussed Pelvic Exam Dilation: 6 Effacement (%): 80 station: -2 Cervix Position: posterior Consistency: soft BISHOPS Score(Cervical Ripeness Score): 9 Contractions Monitor Mode: External Contraction Frequency(min): q3-4 Intensity: Moderate Fetus A Monitor: External (US) Heart Rate Baseline: 135 Variability: Moderate (6-25 BPM) Categories: Category I Accelerations: 15 X 15 Decelerations: Early Amniotic Membrane Status: Ruptured Rupture Method: Artifical Amniotic Fluid: Clear Date of Membrane Rupture: 11/01/24 Time of Membrane Rupture: 15:12 Assessment and Plan Assessment and plan (1) Encounter for induction of labor: Status: Acute Assessment and plan: A: Epidural in place, pt consents to AROM, clear fluid returned Active labor with pitocin augmentation in progress, pitocin @ 8 mu/min BP readings are stable P: Maternal position changes to facilitate rotation and descent Anticipate Objective Vital Signs Reviewed: Yes Subjective Interval history since last seen: Epidural is working well on her right side only though in general pt reports feeling comfortable. Pt is able to feel her contractions but they are less painful now.
--- NOTE | 2024-11-01 17:13 | W.PM.OBNL1 ---
Date of service: 11/01/24 Time of Service: 17:13 Informed Consent Informed Consent: Augmentation of Labor, Regional Anesthesia and Risk,Benefits,Alternatives Discussed Pelvic Exam Dilation: 8 Effacement (%): 90 station: -1 Cervix Position: mid Consistency: soft Contractions Monitor Mode: Internal Contraction Frequency(min): q2-3 IUPC resting tone (mmHg): 20 IUPC peak pressure (mmHg): 60 IUPC Raymond units: 180 Fetus A Monitor: External (US) Heart Rate Baseline: 135 Variability: Moderate (6-25 BPM) Categories: Category II Accelerations: Present Decelerations: Early and Variable Recurrence: Recurrent Amniotic Membrane Status: Ruptured Amniotic Fluid: Clear Assessment and Plan Assessment and plan (1) Encounter for induction of labor: Status: Acute Assessment and plan: A: Progressed to 1, tracing category 2 with early and variable decels Variability remains moderate, baseline stable @ 140 Pitocin reduced to 6mu/min, pt consents to IUPC insertion P: Dr. Mckee aware & inhouse, reviewed tracing Pt repositioned, currently throne Awaiting further descent to begin 2nd stage Objective Vital Signs Reviewed: Yes Objective Narrative Objective Narrative: Pt appears comfortable, FOB bedside providing support Pt has been right and left lateral positioning, also kneeling Pitocin had been up to 10 mu/min, reduced to 6mu/min Subjective Interval history since last seen: Epidural effectiveness has evened out bilaterally, pt comfortable. Voided in bedpan, able to change psotions well.
--- NOTE | 2024-11-01 19:26 | W.ANESPOSTOP ---
Postoperative Evaluation Date, Time and Location Date Performed: 11/01/24 Time Performed: 19:26 Patient Location: Obstetrics Vital Signs Most Recent Imported Vital Signs: Most Recent Vital Signs Temp Pulse Resp BP Pulse Ox 36.9 C 76 16 150/72 H 98 11/01/24 07:43 11/01/24 19:18 11/01/24 07:43 11/01/24 19:18 11/01/24 14:29 Pain Score Most Recent Pain Score: Most Recent Pain Score Pain Level 0 10/31/24 17:02 Assessment Mental Status: Awake (Alert & Oriented to Patient Baseline) Airway and Respiratory Function: Patent airway with normal (patient baseline) respiratory exam Cardiovascular Function: Hemodynamically Stable Hydration Status: Adequately Hydrated Nausea & Vomiting: No Nausea or Vomiting Pain: Pt. Denies Any Pain Peripheral Nerve Block: Patient did not receive a nerve block
--- NOTE | 2024-11-01 19:35 | W.OBDELIVERY ---
Date of service: 11/01/24 Time of Service: 19:15 OB Labor/ Delivery Information Baby A Delivery Delivery Method: Spontaneaous Presentation: Cephalic Cephalic Position: Vertex Vertex Position: Left Occipital Anterior Cord Description-Baby A: 3 Vessels, Nuchal Cord and Reduced Amniotic Fluid: Clear Quantitative Blood Loss: 150 Delivery Outcome: Liveborn Transferred: Remains with Mother Providers Doctor: Chelle Mckee Nurse Agricultural Equipment Sales Engineer: Yolis Iglesias Cement Finisher Helper: Rosy Roman Nurse: Lindsay Fisher Nurse: Franchesca Abernathy Labor/Delivery Information Number of Babies in Womb: 1 Steroids Given: None Reason Steroids Not Administered: N/A Group Beta Strep: Negative Antibiotics Administered: No Rubella Status: Immune Blood Type: O+ Varicella Immunity: Immune Maternal Complications: None Shoulder Dystocia: Yes Note: Category 2 tracing noted at 7-8 cm dilation, Dr. Mckee in unit and reviewed tracing, then evaluated pt with vaginal exam and found she was progressing to full dilation with descent upon maternal pushing effort. 2nd stage huddle completed, and coached pushing initiated. Progress to within 15 minutes, category 2 tracing persisted with early and variable decels noted, variability remained generally moderate. Slow delivery of head noted with mild turtle sign palpable upon delivery of infant's face, Mikaela position already in place, loose nuchal cord reduced over head, suprapubic pressure applied by RN and gentle downward traction of head resulted in release of anterior shoulder within 50 seconds. Delivery of body proceeded rapidly and nonvigorous male delivered over intact perineum, cord clamped and cut, handed to RN & placed in warmer for NRP steps to which the responded quickly and was crying vigorously within 1 minute. pitocin bolus started, cord segment set aside for cord gas collection, cord blood collected, [place] placenta delivered intact with 3VC, infant on mother's chest for S2S, seen to be moving both arms well. Inspection of vulva and vagina intact without laceration, fundus firm below umbilicus and lochia was minimal. Strong family bonding observed, apgars 7/9, weight 3685 gms. Stages of Labor Onset of Labor Date: 11/01/24 Onset of Labor Time: 12:00 Complete Dilatation Date: 11/01/24 Complete Dilatation Time: 18:24 Labor - Stage 1 Duration: 6 hours and 24 minutes ROM Baby A: 11/01/24 ROM Baby A: 15:12 ROM Total Time- Baby A: [id number] Delivery Date-Baby A: 11/01/24 Infant Delivery Time-Baby A: 18:39 Labor Stage 2 Duration: 15 minutes Placenta Delivery Date-Baby A: 11/01/24 Placenta Delivery Time-Baby A: 18:46 Labor-Stage 3 Duration: 7 minutes Total Length of Labor-Baby A: 6 hours and 39 minutes Placenta Cultured: No Placenta Status: Delivered Baby A Gender: Male Gestational Status: Early Term (37-38.6 wks) Gestational Age in Weeks/Days: 38 Weeks and 3 Days weight: 8 lb 1.985 oz Weight Comment: 3685 gms Length-Baby A: 20 in Score-1 Minute Interval(Baby A) Heart Rate-1 minute: 100 BPM or Greater Respiratory Effort- 1 minute: No Spontaneous Effort Muscle Tone-1 minute: Active Movement Reflex Response-1 minute: Prompt Response Color-1 minute: Bluish Hands or Feet Total Score-1 minute: 7 Score-5 Minute Interval(Baby A) Heart Rate- 5 minute: 100 BPM or Greater Respiratory Effort-5 minute: Spontaneous/Strong Cry Muscle Tone-5 minute: Active Movement Reflex Response-5 minute: Prompt Response Color-5 minute: Bluish Hands or Feet Total Score- 5 minute: 9 Shoulder Dystocia Delivery Times Date of Delivery of Head: 11/01/24 Time of Delivery of the Head: 18:38 Head to Body Delivery Interval(minutes): 1839 Verify No Fundal Pressure Applied Fundal Pressure: No Pressure Applied Arm Under Sympisis Note: Right shoulder delivered under symphysis with Mikaela, gentle traction, and suprapubic pressure applied by FRANSISCA
[2024-11-01] MEDS: Ibuprofen 600 MG TAB PO (22:15)
[2024-11-01] MEDS: Acetaminophen 500 MG TAB 1000 MG PO (22:15)
[2024-11-02 00:48] VITALS: RESP 16
[2024-11-02 02:34] VITALS: BP 129/69; PULSE 80; RESP 16; TEMP 36.6
[2024-11-02 08:00] VITALS: BP 132/86; PULSE 72; RESP 12; TEMP 36.8
--- NOTE | 2024-11-02 08:16 | OBPPV_ITS ---
Date of service: 11/02/24 Time of Service: 08:16 Assessment and Plan Assessment and plan (1) Term delivered: Status: Acute Assessment and plan: A: PPD#1, nml recovery, satisfied with experience off to a slow start, pumping & spoon feeding colostrum P: [place] circumcision is planned Pt chooses POP's for contraception until vasectomy Plan discharge tomorrow morning (2) Gestational hypertension affecting second : Status: Acute Assessment and plan: Nml BP since delivery pt denies PAULINO or RUQ pain Subjective Subjective Patient comments: No complaints, Pain well controlled, Tolerating diet and Flatus present Patient's Mood: happy [place] baby status: Doing well, Nursing well, Rooming in and Strong Bonding Observed [place] feeding status: Exclusively breast feeding Exam Physical Exam Vital signs: Temp Pulse Resp BP Pulse Ox 97.9 F 80 16 129/69 98 11/02/24 02:34 11/02/24 02:34 11/02/24 02:34 11/02/24 02:34 11/01/24 14:29 Vital Signs Reviewed: Yes Narrative: normotensive since delivery Constitutional Constitutional: no acute distress, average body habitus and cooperative HEENT Exam HEENT Exam: Normal Neck Exam Neck Exam: Normal Breast Exam Bilateral: Breast Exam: Normal and Soft Nipple Exam: Normal and Uninjured Respiratory Exam Respiratory Exam: Normal Cardiovascular Exam Cardiovascular Exam: Normal Abdominal Exam Abdomen: Other (soft, nontender) Fundal Exam Fundus: Below Umbilicus and Firm Rectal Exam Rectal Exam: Normal Exam Perineum: Intact Extremities Exam Extremity Exam: Normal, Full ROM and Warm to Touch Back/Spine/Pelvis Exam Back Exam: Normal Skin Exam Skin Exam: Normal Neurological Exam Neurological Exam: Normal Psychiatric Exam Psychiatric Exam: Normal
[2024-11-02] MEDS: Acetaminophen 325 MG TAB 650 MG PO (08:22)
[2024-11-02] MEDS: Ibuprofen 600 MG TAB PO ×2 (08:23→19:21)
[2024-11-02 15:30] VITALS: BP 152/85; PULSE 76; RESP 16; TEMP 36.9; O2SAT 100
[2024-11-02 19:15] VITALS: BP 158/87; PULSE 75; RESP 16
[2024-11-02] MEDS: Docusate Sodium 100 MG CAP PO (19:21)
[2024-11-02] MEDS: Acetaminophen 500 MG TAB 1000 MG PO (19:21)
--- NOTE | 2024-11-02 19:45 | W.PM.OBPNV1 ---
Date of service: 11/02/24 Time of Service: 19:45 Assessment and Plan Assessment and plan (1) Gestational hypertension affecting second : Status: Acute Assessment and plan: Mild range BP's noted throughout the afternoon and evening No severe features Plan: start labetalol 200 mg PO BID CBC and CMP in morning Dr. Mckee notified of pt status Subjective Subjective Narrative: Denies PAULINO or RUQ pain, no nausea Exam Physical Exam Vital signs: Temp Pulse Resp BP Pulse Ox 98.4 F 75 16 158/87 H 100 11/02/24 15:30 11/02/24 19:15 11/02/24 19:15 11/02/24 19:15 11/02/24 15:30 Vital Signs Reviewed: Yes Results Hemoglobin/Hematocrit: Hgb 12.6 g/dL (11.2-15.7) 10/31/24 12:05 Hct 37.1 % (36.0-46.0) 10/31/24 12:05 Abnormal Lab Findings: Abnormal Labs 10/31/24 10/31/24 08:00 12:05 Sodium 135 L Creatinine 0.5 L ALT 13 L Alkaline Phosphatase 143 H Albumin 2.9 L Ur Total Protein 24 Hr 282.9 H
[2024-11-02] MEDS: Labetalol 100 MG TAB 200 MG PO (19:56)
[2024-11-03 00:45] VITALS: BP 136/88
[2024-11-03 05:17] LABS: HCT 36.3 % (36.0-46.0); HGB 12.2 g/dL (11.2-15.7); MCH 29.8 pg (27.0-33.0); MCHC 33.6 % (32.0-36.0); MCV 89 fL (80-95); MPV 9.7 fL (8.0-11.0); Platelet Count 210 10^3/uL (130-400); RBC 4.09 10^6/uL (3.93-5.22); RDW 12.8 % (11.7-14.6); RDW-SD 41.9 fL; WBC 11.35 10^3/uL (4.4-10.8)
[2024-11-03 05:33] LABS: ALT 16 U/L (14-59); AST 21 U/L (15-37); Albumin 2.6 g/dL (3.4-5.0); Alkaline Phosphatase 122 U/L (46-116); Anion Gap 7.4 mmol/L (3-11); BUN 11 mg/dL (7-18); Bilirubin, Total 0.1 mg/dL (0.2-1.0); CO2 26.6 mmol/L (21.0-32.0); CREATININE 0.7 mg/dL (0.55-1.02); Chloride 105 mmol/L (98-107); Estimated GFR 117.77 (mL/min/1.73m2); Glucose 133 mg/dL (74-106); Potassium 3.8 mmol/L (3.5-5.1); Sodium 139 mmol/L (136-145); Total Protein 6.3 g/dL (6.4-8.2)
[2024-11-03] MEDS: Acetaminophen 500 MG TAB 1000 MG PO (05:59)
[2024-11-03] MEDS: Docusate Sodium 100 MG CAP PO (05:59)
[2024-11-03] MEDS: Ibuprofen 600 MG TAB PO (05:59)
[2024-11-03 06:05] VITALS: BP 130/81; PULSE 71
--- NOTE | 2024-11-03 07:13 | OBPPV_ITS ---
Date of service: 11/03/24 Time of Service: 07:13 Assessment and Plan Assessment and plan (1) Gestational hypertension affecting second : Status: Acute Assessment and plan: A: PPD#2, BP this morning 130/80, one dose labetalol given last night CMP and CBC today remain nml going better P: Hold labetalol per Dr. Mckee Planning for discharge today Written instructions reviewed and given to pt F/up at 1 (BP check) & 2 & 6 weeks with large animal veterinarian Subjective Subjective Interval history: Pt states she is feeling well and happy, looking forward to going home today. Patient comments: No complaints, Pain well controlled, Tolerating diet and Flatus present Patient's Mood: pleased [place] baby status: Doing well, Nursing well, Rooming in and Strong Bonding Observed feeding status: Exclusively breast feeding and Other (had a few teaspoons of formula yesterday) Exam Physical Exam Vital signs: Temp Pulse Resp BP Pulse Ox 98.4 F 71 16 130/81 100 11/02/24 15:30 11/03/24 06:05 11/02/24 19:15 11/03/24 06:05 11/02/24 15:30 Vital Signs Reviewed: Yes Constitutional Constitutional: no acute distress, average body habitus and cooperative HEENT Exam HEENT Exam: Normal Neck Exam Neck Exam: Normal Breast Exam Bilateral: Breast Exam: Normal and Soft Respiratory Exam Respiratory Exam: Normal Cardiovascular Exam Cardiovascular Exam: Normal Abdominal Exam Abdomen: Other (soft, nontender) Fundal Exam Fundus: Below Umbilicus and Firm Rectal Exam Rectal Exam: Normal Exam Perineum: Intact Extremities Exam Extremity Exam: Normal, Full ROM and Warm to Touch Back/Spine/Pelvis Exam Back Exam: Normal Skin Exam Skin Exam: Normal Neurological Exam Neurological Exam: Normal Psychiatric Exam Psychiatric Exam: Normal Results Hemoglobin/Hematocrit: Hgb 12.2 g/dL (11.2-15.7) 11/03/24 05:14 Hct 36.3 % (36.0-46.0) 11/03/24 05:14 Abnormal Lab Findings: Abnormal Labs 10/31/24 10/31/24 11/03/24 08:00 12:05 05:14 WBC 11.35 H Sodium 135 L Creatinine 0.5 L Glucose 133 H Total Bilirubin 0.1 L ALT 13 L Alkaline Phosphatase 143 H 122 H Total Protein 6.3 L Albumin 2.9 L 2.6 L Ur Total Protein 24 Hr 282.9 H
[2024-11-03 07:30] VITALS: BP 148/80; PULSE 71; RESP 12; TEMP 36.4; O2SAT 98
--- NOTE | 2024-11-03 10:17 | DSE_ITS ---
Date of service: 11/03/24 Time of Service: 10:17 DS: Diagnosis Discharge Diagnosis (1) Gestational hypertension affecting second : Status: Acute Discharge Plan Disposition Patient Disposition: Home Condition: Good Discharge Details Reason For Visit: Induction of labor Admit Date/Time: 10/31/24 12:48 Admit Provider: Cherelle Gentile Attending Provider: Cherelle Gentile [facility] Hospital Course: on HD#2, nml course, nml to mild range BP's noted, going well. Home Meds and New Rx's Prescriptions: No Action cholecalciferol (vitamin D3) 25 mcg (1,000 unit) capsule 25 mcg PO DAILY DHA 200 mg capsule 200 mg PO DAILY ascorbate calcium (vitamin C) 500 mg tablet 500 mg PO DAILY Discharge Instructions Additional Instructions: Plan for 1 week BP check, and 2 & 6 week follow-up appointments with the midwives. Call for any and all concerns. Stand Alone Forms: BC Instructions, BC Post Vaginal Deliver Activity:: Activity as Tolerated Equipment/Supplies:: No Equipment Needed Diet:: Normal Diet Discharge Orders Discharge Orders: Discharge Order (Routine); Ordered 11/03/24 Ordered By: Yolis Iglesias OB:DS Summary Summary Vaginal Delivery Method: Spontaneaous Episiotomy Description: None Laceration Description: None Laceration Extension: N/A Contraception Discussed Contraception Discussed: Yes Contraceptive Plan: Control Pill/Patch, Gender-Baby A: Male weight: 8 lb 1.985 oz Status at Discharge Functional status at discharge: independent ambulation Overall status at discharge: patient is progressing back to baseline Mental Status: mental status grossly normal Speech and Movement: speech and movement normal and speech clear Mood: congruent mood Affect: normal affect Quality:SDOH Health Related Social Needs: No Data to Display Exam Physical Exam Vital signs: Temp Pulse Resp BP Pulse Ox 98.4 F 71 16 130/81 100 11/02/24 15:30 11/03/24 06:05 11/02/24 19:15 11/03/24 06:05 11/02/24 15:30 Constitutional Constitutional: no acute distress, average body habitus and cooperative HEENT Exam HEENT Exam: Normal Neck Exam Neck Exam: Normal Breast Exam Bilateral: Breast Exam: Normal and Soft Respiratory Exam Respiratory Exam: Normal Cardiovascular Exam Cardiovascular Exam: Normal Abdominal Exam Abdomen: Other (soft, nontender) Fundal Exam Fundus: Below Umbilicus and Firm Rectal Exam Rectal Exam: Normal Exam Perineum: Intact Extremities Exam Extremity Exam: Normal, Full ROM and Warm to Touch Back/Spine/Pelvis Exam Back Exam: Normal Skin Exam Skin Exam: Normal Neurological Exam Neurological Exam: Normal Psychiatric Exam Psychiatric Exam: Normal PFSH All Active Problems (Updated 11/02/24 @ 08:19 by Yolis Iglesias) Term delivered (Acute) Gestational hypertension affecting second (Acute) Essential hypertension (Acute) Medical History (Updated 11/02/24 @ 08:19 by Yolis Iglesias) History of pre-eclampsia in prior , currently in second trimester Encounter for induction of labor Pre-eclampsia in period Managed with PO meds x6wks At risk for ineffective difficulty with first baby Family history of cystic fibrosis Left wrist fracture Surgical History H/O wrist surgery Family History (Updated 10/01/24 @ 15:56 by Cherelle Gentile CNM) Mother Cancer ANAL CANCER, has a colostomy, diagnosed age 55. Maternal Grandmother No problems noted. Maternal Grandfather No problems noted. Father Alcohol use disorder Hypertension Paternal Grandmother No problems noted. Paternal Grandfather Alcohol use disorder Brother Cystic fibrosis carrier Brother No problems noted. Sister No problems noted. Maternal Aunt Diabetes Maternal Aunt Diabetes Maternal Cousin Cystic fibrosis Social History Smoking/Tobacco Use Status: Never Smoking risk assessment performed?: Yes Alcohol Intake: former Drug use: Never Substance use type: does not use Household members: significant other Housing: house Sexually active: Yes Do you think of yourself as: straight/heterosexual Current gender identity: female Do you feel safe at home: Yes Do you feel safe in your relationship?: Yes Female Reproductive History Menstrual control method: none History History 2 Para 1 Hx # Term Pregnancies 1 Multiple births 0 Hx # Pregnancies 0 Ectopic pregnancies 0 AB induced 0 Hx Number of Living Children 1 AB spontaneous 0 Past Pregnancies Del. Date GA/Weeks # Preg Succ Route Wgt Sex Labor Lgth Anesth esia Location [facility] 10/20/22 40 No Yes vaginal 7 lb 4.93 oz Male 17 [facility] [place] Delivery Date: 10/20/22 Last Updated by: Cherelle Gentile CNM Spontaneous labor. Long second stage, Pre-eclampsia, apgars 4/9, GBS pos. Difficult due to poor latch DS: Data Vitals/I&O Vitals and I&O: Vital Signs Temperature 98.4 F 11/02/24 15:30 Temperature 98.2 F 10/31/24 10:34 Temperature Source Oral 11/02/24 15:30 Pulse 71 11/03/24 06:05 Pulse 83 10/31/24 10:34 Pulse Rhythm Regular 11/03/24 00:19 Respiratory Rate 16 11/02/24 19:15 Blood Pressure 130/81 11/03/24 06:05 Blood Pressure 153/79 10/31/24 10:34 Blood Pressure Mean 97 11/03/24 06:05 Pulse Oximetry 100 11/02/24 15:30 Oxygen Delivery Method Room Air 10/31/24 17:02 Oxygen Flow Rate 0 10/31/24 17:02 Pain Level 2 11/02/24 15:30 Comment provider paged for High blood pressure 11/02/24 15:30 Intake & Output 11/02/24 11/02/24 11/03/24 11:59 23:59 11:59 Output Total 1250 / 1250 Balance -1250 / -1250 Output: Urine 1250 / 1250 Data Completed and Pending Labs on day of discharge: Labs from last 24 hours 11/03/24 05:14 WBC 11.35 H RBC 4.09 Hgb 12.2 Hct 36.3 MCV 89 MCH 29.8 MCHC 33.6 RDW 12.8 Plt Count 210 MPV 9.7 Sodium 139 Potassium 3.8 Chloride 105 Carbon Dioxide 26.6 Anion Gap 7.4 BUN 11 Creatinine 0.7 Est GFR (CKD-EPI 2020) 117.77 Glucose 133 H Calcium 9.0 Total Bilirubin 0.1 L AST 21 ALT 16 Alkaline Phosphatase 122 H Total Protein 6.3 L Albumin 2.6 L
== END 2024-11-03 10:55 | disposition home or self-care (01) | DRG 807 ==
LOC: BCD 12:55 → OBS 12:55
PROVIDERS: Advanced Practice Midwife; Admitting Provider Advanced Practice Midwife; PCP Family Medicine; Visit Provider Advanced Practice Midwife
DX: O13.4 Gestational [pregnancy-induced] hypertension without significant proteinuria, complicating childbirth (principal); Z37.0 Single live birth; Z3A.38 38 weeks gestation of pregnancy; O69.81X0 Labor and delivery complicated by cord around neck, without compression, not applicable or unspecified
CPT/HCPCS: 59200; 36415; 80053; 85027; 86850; 86900; 86901; 59025; 81050; 82565; 84155; 84550; G0378; J3490

== ENCOUNTER 2024-11-05 15:51 | Outpatient (CLI) | payer OTHER, SELFPAY ==
[2024-11-05 16:00] VITALS: BP 149/87
[2024-11-05 16:10] VITALS: BP 139/89
[2024-11-05 16:20] VITALS: BP 143/96
[2024-11-05 16:30] VITALS: BP 144/91
[2024-11-05 16:46] LABS: MCH 29.1 pg (27.0-33.0); MCHC 32.5 % (32.0-36.0); MCV 90 fL (80-95); MPV 9.2 fL (8.0-11.0); Platelet Count 278 10^3/uL (130-400); RBC 4.47 10^6/uL (3.93-5.22); RDW 12.6 % (11.7-14.6); RDW-SD 41.3 fL
[2024-11-05 17:02] VITALS: BP 144/88
[2024-11-05 17:05] LABS: ALT 23 U/L (14-59); AST 22 U/L (15-37); Albumin 2.9 g/dL (3.4-5.0); Alkaline Phosphatase 115 U/L (46-116); Anion Gap 6.3 mmol/L (3-11); BUN 14 mg/dL (7-18); Bilirubin, Total 0.2 mg/dL (0.2-1.0); CO2 28.7 mmol/L (21.0-32.0); CREATININE 0.6 mg/dL (0.55-1.02); Calcium 9.1 mg/dL (8.5-10.1); Chloride 104 mmol/L (98-107); Estimated GFR 121.47 (mL/min/1.73m2); Glucose 89 mg/dL (74-106); Potassium 3.5 mmol/L (3.5-5.1); Sodium 139 mmol/L (136-145); Total Protein 6.6 g/dL (6.4-8.2); Uric Acid 4.7 mg/dL (2.6-6.0)
== END 2024-11-05 17:37 | disposition other institution (70) ==
LOC: BCD 15:53 → OBS 16:05
PROVIDERS: Advanced Practice Midwife; PCP Family Medicine; Visit Provider Obstetrics & Gynecology
DX: O16.5 Unspecified maternal hypertension, complicating the puerperium (principal)
CPT/HCPCS: 80053; 85027; 84550; G0378